=== PATIENT | male | born 1950 | race Caucasian/White ===

== ENCOUNTER 2023-04-01 11:01 | Emergency (ER) | payer OTHER, SELFPAY ==
--- NOTE | ~2023-04-01 | CT_ITS ---
EXAMINATION: CT ABDOMEN AND PELVIS WITHOUT CONTRAST CLINICAL INFORMATION: Left-sided flank pain COMPARISON: None available. TECHNIQUE: Multidetector volumetric imaging was performed from the superior aspect of the liver through the pubic symphysis. Sagittal and coronal reformatted images were obtained on the technologist's workstation. This CT examination was performed using dose optimization techniques as appropriate, variously including the following: *Automated exposure control *Adjustment of mA and/or kV according to patient size (this includes techniques or standardized protocols for targeted exams where dose is matched to indication/reason for exam; i.e. extremities or head) *Use of iterative reconstruction technique DLP: 479 mGy-cm FINDINGS: LUNG BASES: Some subpleural reticular changes are seen which may be indicative of minimal fibrosis. No consolidations, suspicious lung masses or pleural effusions. LIVER, GALLBLADDER, AND BILIARY TREE: The liver is normal in size, shape, and attenuation. Multiple benign simple cysts are noted throughout the liver. No suspicious solid focal hepatic lesion or biliary ductal dilatation is present. The gallbladder is unremarkable with no evidence of radiopaque gallstones, gallbladder wall thickening, or obvious pericholecystic inflammatory changes. PANCREAS: Unremarkable. SPLEEN: Unremarkable. ADRENAL GLANDS: Unremarkable. KIDNEYS AND URETERS: The kidneys are normal in size, shape, and attenuation. There is a nonobstructing 2 mm right lower pole renal calculus along with a benign Bosniak class one lower pole right renal cyst. The right ureter is unremarkable. Of note, there is left-sided hydronephrosis secondary to an obstructing proximal 6 x 4 mm ureteral calculus. This measures 982 Hounsfield units and is almost 15 cm from the posterior axillary line. There is mild dilatation of the ureter above this level with mild pelvocaliectasis. Perirenal stranding is present. No suspicious left renal masses are seen.. BLADDER: Unremarkable. GASTROINTESTINAL TRACT: The small and large bowel are unremarkable. The appendix is unremarkable. ABDOMINAL WALL: Small left inguinal hernia seen containing only fat. LYMPH NODES: No retroperitoneal lymphadenopathy. VASCULAR:Minimal calcific atherosclerotic changes are present in the aorta and iliofemoral vessels. There is no evidence of an abdominal aortic aneurysm. PELVIC VISCERA: Mild BPH. Seminal vesicles normal OSSEOUS STRUCTURES: Degenerative changes are present spine most marked at L5-S1 with a Schmorl's node at the inferior endplate of L2. CT/CT abdomen pelvis wo IV con IMPRESSION: 1. Obstructing 6 x 4 mm proximal left ureteral calculus with associated hydronephrosis. 2. Nonobstructing 2 mm right lower pole renal calculus. 3. Other incidental findings as described above. Fleischner guidelines were followed.
[2023-04-01 11:12] VITALS: BP 147/84; PULSE 56; RESP 18; TEMP 36.3; O2SAT 98; BMI 23.9
[2023-04-01] MEDS: Ondansetron ODT 4 MG TAB.RAPDIS TRANSLINGU (11:16)
--- NOTE | 2023-04-01 11:16 | PC.NURSE ---
a&ox3, vss and up to date at this time. pt comes in d/t new onset 1010 left sided abdominal pain that started this am. pain radiates to left flank. denies urinary sx. pt states n/v. denies diarrhea. denies any trauma. no sob/wob noted at this time. respirations even and unlabored. resting comfortably/changed to hospital attire. bedside. call talavera placed within reach.
[2023-04-01 11:28] LABS: MANUAL DIFF FLAG NO
[2023-04-01 11:30] VITALS: BP 171/87; PULSE 70; RESP 16; O2SAT 99
[2023-04-01 11:31] LABS: Basophils Percent Auto 0.4 % (0-2); Eosinophils Absolute Auto 0.1 X10*3/uL (0.0-0.4); Eosinophils Percent Auto 1.3 % (0-4); Hematocrit 44.5 % (42.0-52.0); Hemoglobin 14.4 g/dl (14.0-18.0); Imm Gran Abs Auto 0.04 X10*3/uL (0.00-0.03); Imm Gran Pct Auto 0.4 % (0.0-0.4); Lymphocytes Absolute Auto 1.6 X10*3/uL (1.2-4.9); Lymphocytes Percent Auto 15.7 % (20-40); Mean Corpuscular HGB Conc 32.4 g/dl (31.0-36.0); Mean Corpuscular Hemoglobin 32.4 pg (27.0-33.0); Mean Platelet Volume 11.4 fL (9.4-12.4); Monocytes Absolute Auto 0.5 X10*3/uL (0.1-1.2); Monocytes Percent Auto 4.9 % (2-11); Neutrophils Absolute Auto 7.7 x10*3/uL (2.0-8.3); Neutrophils Percent Auto 77.3 % (45-73); Platelet Count 226 X10*3/uL (160-400); Red Blood Count 4.45 X10*6/uL (4.60-5.80); Red Cell Distribution Width 13.8 % (11.0-16.0); White Blood Count 9.9 X10*3/uL (4.8-10.8)
[2023-04-01 11:42] LABS: Alanine Aminotransferase 20 U/L (0-40); Albumin Level 4.4 g/dL (3.5-5.0); Alkaline Phosphatase 93 U/L (39-117); Anion Gap 11 (12-20); Aspartate Amino Transferase 20 U/L (5-37); Bilirubin Total 0.7 mg/dL (0.0-1.0); Blood Urea Nitrogen 24 mg/dL (9-16); Calcium 9.8 mg/dL (8.4-10.2); Carbon Dioxide 30 mmol/L (22-29); Chloride 105 mmol/L (96-108); Creatinine Clr Calc Pharmacy 51.3; Estimated Glomerular Filt Rate 53; Glucose Random 144 mg/dL (60-115); Potassium 4.8 mmol/L (3.3-5.1); Sodium 141 mmol/L (135-145); Total Protein 7.8 g/dL (6.5-8.0)
--- NOTE | 2023-04-01 11:51 | ED_ITS ---
HPI - General Adult General Chief complaint: Abdominal Pain Stated complaint: severe l side pain Time Seen by Provider: 04/01/23 11:51 Source: patient Mode of arrival: ambulatory Limitations: no limitations History of Present Illness HPI narrative: Patient is a 73-year-old male presenting to the emergency department with complaint left flank/left-sided abdominal pain which began suddenly earlier today. Patient states that he felt fine when he woke. Reports associated nausea and vomiting, denies diarrhea or constipation. States emesis is non- bloody, non-bilious. Denies fever. Denies urinary frequency, dysuria, hematuria or other urinary symptoms. Patient's states that patient's sister was recently diagnosed with a kidney stone. MD complaint: flank pain Onset (ago): hour(s) Location: left Radiation: abdomen Severity: severe Severity scale (1-10): 10 Quality: sharp Pain Consistency: constant Relieving factors: none Exacerbating factors: none Associated symptoms: nausea/vomiting Treatments prior to arrival: none Related Data Previous Rx's Medication Instructions Recorded ondansetron HCl 4 mg tablet 4 mg PO Q8H PRN nausea and 04/01/23 vomiting #10 tabs oxycodone 5 mg tablet 5 mg PO Q8H PRN pain #9 tabs 04/01/23 prednisone 20 mg tablet 20 mg PO DAILY #4 tabs 04/01/23 tamsulosin 0.4 mg capsule 0.4 mg PO DAILY #7 caps 04/01/23 Allergies Allergy/AdvReac Type Severity Reaction Status Date / Time No Known Allergies Allergy Verified 04/01/23 11:11 Review of Systems 2 Review of Systems: As per HPI. Yes all other systems are reviewed and are negative Constitutional: Constitutional: Reports as per HPI [facility] Social History Social History Smoked in Last 30 Days: No Use of substances other than those prescribed or required for medical reasons: No Advance Directives: No Physical Exam ED Vital Signs: Vital Signs - 24 hr 04/01/23 11:12 04/01/23 11:30 04/01/23 14:00 Temperature 97.4 F Pulse Rate 56 70 83 Respiratory Rate 18 16 16 Blood Pressure 147/84 H 171/87 H 132/69 Pulse Oximetry 98 99 96 Oxygen Delivery Method Room Air Room Air Room Air BMI result Body Mass Index 23.9 Vital signs have been reviewed and appear to be correct. Blood pressure elevated. Heart rate normal. Respiratory rate normal. Temperature normal. Oxygen saturation normal. Const General: cooperative, healthy appearing and no acute distress Orientation/consciousness: oriented to person, oriented to place, oriented to time and patient oriented x3 Limitations: no limitations HENMT Head: Yes normocephalic and Yes atraumatic Ears: external ears normal General nose exam: Normal external nose present Face and sinus: Yes face symmetric Mouth: oropharynx normal and moist mucous membranes Throat: Yes uvula midline Eyes Pupils: Equal, round and reactive pupils present Neck Neck: Yes normal visual inspection and Yes supple Resp Effort & Inspection: normal respiratory effort and able to speak in complete sentences Auscultation: clear to auscultation bilaterally Cardio Rate: regular rate Rhythm: regular rhythm Heart sounds: S1 normal heart sound present and S2 normal heart sound present GI Palpation (GI): Soft to palpation and nontender Auscultation: normoactive bowel sounds General: Yes no CVA tenderness Back/Spine/Pelvis Back: no CVA tenderness Skin General skin exam: elasticity normal and turgor normal Neuro General: oriented to person, oriented to place, oriented to time, patient oriented x3, moves all extremities, no focal motor deficits and CN's II-XI intact bilaterally Cranial nerves: Yes Equal, round and reactive pupils present Cognition (Neuro): normal cognition Extrem General: Yes full ROM, Yes no pedal edema and Yes no calf tenderness Psych Mental Status: mental status grossly normal Affect: normal affect Thought process: Normal thought process present Medications Administered Discontinued Medications Generic Name Dose Route Start Last Admin Trade Name Freq PRN Reason Stop Dose Admin Sodium Chloride 1,000 mls @ 999 mls/hr 04/01/23 12:00 04/01/23 13:13 Ns IV 04/01/23 13:00 Infused .Q1H1M MOE Infusion Ketorolac Tromethamine 15 mg 04/01/23 11:52 04/01/23 12:03 Ketorolac Tromethamine 15 Mg/Ml Vial IVPUSH 04/01/23 11:53 15 mg ONCE ONE Administration Metoclopramide HCl 10 mg 04/01/23 11:51 04/01/23 12:03 Metoclopramide Hcl 10 Mg/2 Ml Vial IVPUSH 04/01/23 11:52 10 mg ONCE ONE Administration Morphine Sulfate 4 mg 04/01/23 12:13 04/01/23 12:18 Morphine Sulfate 4 Mg/Ml Cartridge IVPUSH 04/01/23 12:14 4 mg ONCE ONE Administration Protocol Ondansetron HCl 4 mg 04/01/23 11:15 04/01/23 11:16 Ondansetron Odt 4 Mg Tab.Rapdis TRANSLINGU 04/01/23 11:16 4 mg ONCE ONE Administration Medical Decision Making Medical Decision Making [facility] Narrative: Patient is a 73-year-old male presenting to the emergency department with complaint left flank/left-sided abdominal pain which began suddenly earlier today. On exam patient is awake, A+Ox3, VS WNL, afebrile, normal neurological exam without focal deficits, physical exam findings as above. Given reported symptoms and physical exam findings, initial differential includes renal colic, renal/ureteral stone, UTI, pyelonephritis. Labs notable for no leukocytosis, mild elevation of BUN. UA notable for 3+ blood. CT notable for 4mm x 6mm left ureteral stone. My interpretation is in agreement with the radiologist's interpretation. Patient initially reporting pain of 10/10, pain improved to 1/10 after morphine and ketorolac. Differential Diagnosis Differential Diagnoses: The differential diagnosis associated with the presentation includes As per [facility]. Admission/Observation Consideration of admission/observation: Escalation of care including admission/observation considered Consult Healthcare Provider Management of the patient was discussed with: Ad Writer (Dr. Elias) Lab Data [facility] Lab Attestation statement: I reviewed the patient's lab results. As per [facility] 04/01/23 11:22 04/01/23 11:22 Labs: Lab Results 04/01/23 04/01/23 Range/Units 11: 14:20 WBC 9.9 (4.8-10.8) X10*3/uL RBC 4.45 L (4.60-5.80) X10*6/uL Hgb 14.4 (14.0-18.0) g/dl Hct 44.5 (42.0-52.0) % MCV 100.0 H (80.0-98.0) fL MCH 32.4 (27.0-33.0) pg MCHC 32.4 (31.0-36.0) g/dl RDW 13.8 (11.0-16.0) % Plt Count 226 (160-400) X10*3/uL MPV 11.4 (9.4-12.4) fL Immature Gran % (Auto) 0.4 (0.0-0.4) % Neut % (Auto) 77.3 H (45-73) % Lymph % (Auto) 15.7 L (20-40) % Harris % (Auto) 4.9 (2-11) % Eos % (Auto) 1.3 (0-4) % Baso % (Auto) 0.4 (0-2) % Lymph # (Auto) 1.6 (1.2-4.9) X10*3/uL Harris # (Auto) 0.5 (0.1-1.2) X10*3/uL Eos # (Auto) 0.1 (0.0-0.4) X10*3/uL Baso # (Auto) 0.0 (0.0-0.2) X10*3/uL Abs Immat Gran (auto) 0.04 H (0.00-0.03) X10*3/uL Absolute Neuts (auto) 7.7 (2.0-8.3) x10*3/uL Absolute Nucleated RBC 0.000 (0.0-0.012) X10*3/uL Nucleated RBC % (auto) 0.0 (0.0-0.2) /100WBC Sodium 141 (135-145) mmol/L Potassium 4.8 (3.3-5.1) mmol/L Chloride 105 (96-108) mmol/L Carbon Dioxide 30 H (22-29) mmol/L Anion Gap 11 L (12-20) BUN 24 H (9-16) mg/dL Creatinine 1.32 (0.5-1.4) mg/dL Estim Creat Clear Calc 51.3 Estimated GFR 53 Random Glucose 144 H (60-115) mg/dL Calcium 9.8 (8.4-10.2) mg/dL Total Bilirubin 0.7 (0.0-1.0) mg/dL AST 20 (5-37) U/L ALT 20 (0-40) U/L Alkaline Phosphatase 93 (39-117) U/L Total Protein 7.8 (6.5-8.0) g/dL Albumin 4.4 (3.5-5.0) g/dL Urine Color Dark Yellow Urine Appearance Clear Urine pH 6.0 (5.0-9.0) Ur Specific [place] 1.025 (1.005-1.025) Urine Protein 30 (1+) H (Neg-Trace) mg/dL Urine Glucose (UA) Negative (Negative) mg/dL Urine Ketones Trace (Negative) mg/dL Urine Blood Large (3+) H (Negative) Urine Nitrite Negative (Negative) Ur Leukocyte Esterase Negative (Negative) Urine RBC >20 H (0-2) /HPF Urine WBC 0-5 (0-5) /HPF Ur Squamous Epith Cells 0-2 (0-2) /HPF Urine Bacteria None Seen (None Seen) Hyaline Casts 0-2 (0-2) /LPF Independent Interpretation I performed an independent interpretation of an: CT Scan Interpretation: left ureteral stone Radiology Impression Discussion of test interpretation with radiology: I have reviewed the radiologist's reading. Radiologist Impression: CT/CT abdomen pelvis wo IV con IMPRESSION: 1. Obstructing 6 x 4 mm proximal left ureteral calculus with associated hydronephrosis. 2. Nonobstructing 2 mm right lower pole renal calculus. 3. Other incidental findings as described above. Fleischner guidelines were followed. External Record Review External record reviewed: Inpatient record, Office record and Outpatient record Prescription Management I considered prescription management with: Pain Medication and Other Critical Care Time Critical Care Time Critical Care Time: Yes Total Critical Care Time: 45 Attestation: I have personally provided critical care time exclusive of time spent on separately billable procedures. Time includes review of lab data, radiology results, discussion with consultants, and monitoring for potential decompensation. Intervention performed as documented. Discharge Plan Discharge Clinical Impression: Calculus of left ureter Patient Disposition: Home, Self-Care Instructions: Low Oxalate Diet (ED), How to Strain Your Urine (ED), Ureteral Stones (ED) Additional Instructions: You were evaluated in the emergency department today for left flank pain. Your CT scan showed a 4 mm x 6 mm stone in your left ureter. Your urine did not show evidence of infection. You are being discharged home on prednisone which is a steroid to decrease inflammation, tamsulosin to dilate your ureter and help the stone pass, oxycodone for severe pain, and ondansetron for nausea. You can take 600 mg ibuprofen or 650 mg of Tylenol every 6 hours for pain as well. You are being referred to Urology, please call the office to schedule a follow-up appointment for further evaluation and management of your symptoms. Return to the emergency department if you develop worsening pain, difficulty or inability to urinate, fever 100.4? F or greater, persistent vomiting or any other concerning symptoms. Prescriptions: New prednisone 20 mg tablet 20 mg PO DAILY Qty: 4 0RF tamsulosin 0.4 mg capsule 0.4 mg PO DAILY Qty: 7 0RF ondansetron HCl 4 mg tablet 4 mg PO Q8H PRN (Reason: nausea and vomiting) Qty: 10 0RF oxycodone 5 mg tablet 5 mg PO Q8H PRN (Reason: pain) Qty: 9 0RF Rx Instructions: Partial Fill upon patient request. Referrals: [facility] [Provider Group]
--- NOTE | 2023-04-01 11:52 | PC.NURSE ---
pt actively vomiting at this time. provider aware/notified/now speaking w/ pt at this time.
[2023-04-01] MEDS: 0.9 % Sodium Chloride 1,000 ML 999 ML IV (12:02)
[2023-04-01] MEDS: Metoclopramide HCl 10 MG/2 ML VIAL IVPUSH (12:03)
[2023-04-01] MEDS: Ketorolac Tromethamine 15 MG/ML VIAL IVPUSH (12:03)
--- NOTE | 2023-04-01 12:12 | PC.NURSE ---
20gIV placed in the wrist wrist w/o difficulty - medications administered per provider order. pt speaking w/ provider at this time. awaiting to go to CT at this time. respirations even and unlabored. call talavera placed within reach.
[2023-04-01] MEDS: Morphine Sulfate 4 MG/ML CARTRIDGE IVPUSH (12:18)
--- NOTE | 2023-04-01 12:22 | PC.NURSE ---
medication administered per provider order. will reassess.
--- NOTE | 2023-04-01 12:52 | PC.NURSE ---
pt verbalizing pain level decreased to 0/10 at this time post medication administration - states that he is feeling much better. n/v has subsided at this time. respirations remain even and unlabored. pt awaiting CT at this time. call talavera placed within reach.
[2023-04-01 14:00] VITALS: BP 132/69; PULSE 83; RESP 16; O2SAT 96
--- NOTE | 2023-04-01 14:16 | PC.NURSE ---
urine obtained/sent to lab by tech.
[2023-04-01 14:30] LABS: Appearance Urine Clear; Color Urine Dark Yellow; Glucose Urine UA Negative (Negative); Leukocyte Esterase Urine Negative (Negative); Nitrite Urine Negative (Negative); Specific Gravity - Urine 1.025 (1.005-1.025); UMIC TRIGGER UACC YES; Urine Blood Large (3+) (Negative); Urine Ketones Trace mg/dL (Negative); Urine Protein 30 (1+) mg/dL (Neg-Trace)
[2023-04-01 14:35] LABS: Bacteria Urine None Seen (None Seen); Hyaline Casts Urine 0-2 /LPF (0-2); RBC Urine >20 /HPF (0-2); Squamous Epithelial Cell Urine 0-2 /HPF (0-2); WBC Urine 0-5 /HPF (0-5)
[2023-04-01] MEDS: predniSONE 20 MG TABLET PO (17:36)
[2023-04-01] MEDS: Tamsulosin HCL 0.4 MG CAPSULE PO (17:36)
[2023-04-01 17:44] VITALS: BP 142/77; PULSE 74; RESP 16; TEMP 36.7; O2SAT 98
--- NOTE | 2023-04-01 17:45 | PC.NURSE ---
pt medicated per order
== END 2023-04-01 17:45 | disposition home or self-care (01) ==
PROVIDERS: Emergency Provider Emergency Medicine Emergency Medical Services; PCP Internal Medicine
DX: N20.1 Calculus of ureter (principal); R10.9 Unspecified abdominal pain; R11.2 Nausea with vomiting, unspecified; Z79.899 Other long term (current) drug therapy
CPT/HCPCS: 36415; 74176; 80053; 81001; 85025; 96361; 96374; 96375; 99284; 99285; J1885; J2270; J2765

== ENCOUNTER 2023-04-04 14:06 | Inpatient (IN) | payer OTHER, MEDICARE, SELFPAY ==
--- NOTE | ~2023-04-04 | CT_ITS ---
EXAMINATION: CT ABDOMEN AND PELVIS WITHOUT CONTRAST CLINICAL INFORMATION: Worsening hydronephrosis. Known ureter stone. COMPARISON: CT abdomen pelvis 09/29/2022. TECHNIQUE: Multidetector volumetric imaging was performed from the superior aspect of the liver through the pubic symphysis. Sagittal and coronal reformatted images were obtained on the technologist's workstation. This CT examination was performed using dose optimization techniques as appropriate, variously including the following: *Automated exposure control *Adjustment of mA and/or kV according to patient size (this includes techniques or standardized protocols for targeted exams where dose is matched to indication/reason for exam; i.e. extremities or head) *Use of iterative reconstruction technique DLP: 501 mGy-cm FINDINGS: LUNG BASES: Minimal atelectatic changes or scarring lingula. Small os hiatal hernia is noted. LIVER, GALLBLADDER, AND BILIARY TREE: The liver is normal in size, shape, and attenuation. There are multiple benign liver cysts. No solid lesion. No intrahepatic ductal dilatation.. The gallbladder is unremarkable with no evidence of radiopaque gallstones, gallbladder wall thickening, or obvious pericholecystic inflammatory changes. PANCREAS: Unremarkable. SPLEEN: Unremarkable. ADRENAL GLANDS: Unremarkable. KIDNEYS AND URETERS: The kidneys are normal in size, shape, and attenuation. There is a nonobstructive 4 mm radiopaque calculi lower pole right kidney. No hydronephrosis. There is a 7 mm a subcutaneous radiopaque calculi left proximal ureter with hydroureteronephrosis. There is mild bilateral perinephric stranding.. BLADDER: Unremarkable. GASTROINTESTINAL TRACT: There is scattered stool, diverticuli and gas seen throughout the colon without significant distention or diverticulitis. The small bowel loops are normal caliber. Appendix is normal caliber. The stomach is nondistended with a small hiatal hernia. ABDOMINAL WALL: There is a left inguinal hernia with large amount of mesenteric fat and a loop of sigmoid colon at the deep inguinal ring opening. LYMPH NODES: Normal. VASCULAR: Unremarkable. PELVIC VISCERA: The prostate gland is markedly enlarged. There are several phleboliths in the pelvis. OSSEOUS STRUCTURES: There are degenerative disc changes L5-S1 disc level. No aggressive lytic or sclerotic process seen. CT/CT abdomen pelvis wo IV con IMPRESSION: 1. 7 mm obstructive radiopaque calculi left proximal ureter with hydroureteronephrosis. 2. Nonobstructive 4 mm radiopaque calculi lower pole right kidney. 3. Colonic diverticulosis without diverticulitis. Mild constipation. 4. Left inguinal hernia with mesenteric fat and a loop of sigmoid colon at the deep inguinal ring opening. Fleischner guidelines were followed.
--- NOTE | ~2023-04-04 | FL_ITS ---
EXAMINATION: XR FLUOROSCOPY WITH IMAGES CLINICAL INFORMATION: Left-sided ureteral stent placement. COMPARISON: CT abdomen and pelvis 04/04/2020. TECHNIQUE: Fluoroscopy Supervised By: Dr. Petros Valladares. Fluoroscopy Time: 19.5 seconds. Cumulative Dose: 6.05 mGy. Images: 2. FINDINGS: Imaging demonstrates filling defect in the proximal ureter followed by placement of a ureteral stent. Only the proximal pigtail is seen in the left renal pelvis. FL/FL guidance in OR IMPRESSION: Fluoroscopy provided for left ureteral stent placement.
[2023-04-04 14:37] VITALS: BP 150/78; PULSE 72; RESP 19; TEMP 36.6; O2SAT 97; BMI 24.4
--- NOTE | 2023-04-04 14:41 | ED_ITS ---
HPI - General Adult General Chief complaint: Urogenital-Male Stated complaint: Kidney stone seen here recently Time Seen by Provider: 04/04/23 16:29 Source: patient Mode of arrival: ambulatory Limitations: no limitations History of Present Illness HPI narrative: Patient with no significant past medical history was seen here on 04/01 4 left flank pain diagnosed with 7 mm proximal ureteric stone with hydronephrosis patient been taking pain medication Flomax and still having increased pain with nausea and vomiting repeat CT scan done before my evaluation showed still has 7 mm proximal left ureteric stone with hydronephrosis. Related Data Home Medications Medication Instructions Recorded Confirmed dorzolamide 22.3 mg-timolol 6.8 1 drp ophthalmic-Right DAILY 04/04/23 04/04/23 mg/mL eye drops loteprednol etabonate 0.5 % eye 1 drp ophthalmic-Left MOWEFR@0900 04/04/23 04/04/23 drops,suspension prednisone 20 mg tablet See Rx Instructions .Route .COMPLEX 04/04/23 04/04/23 tamsulosin 0.4 mg capsule See Rx Instructions .Route .COMPLEX 04/04/23 04/04/23 Previous Rx's Medication Instructions Recorded ondansetron HCl 4 mg tablet 4 mg PO Q8H PRN nausea and 04/01/23 vomiting #10 tabs oxycodone 5 mg tablet 5 mg PO Q8H PRN pain #9 tabs 04/01/23 Allergies Allergy/AdvReac Type Severity Reaction Status Date / Time No Known Allergies Allergy Verified 04/04/23 14:36 Review of Systems 2 Review of Systems: Yes all other systems are reviewed and are negative [facility] Past Medical History Medical History (Updated 04/05/23 @ 12:02 by Petros Valladares MD) Glaucoma Surgical History (Updated 04/05/23 @ 11:29 by Alessandra Casillas RN) Hx of rotator cuff surgery History of back surgery Hx of bilateral cataract extraction Social History Social History Household Members: Spouse Housing: House Do you presently have visiting nurse or other home services: No Alcohol intake: former Patient Tobacco Use Status: Former Tobacco user Quit Date: 20 yrs ago Smoked in Last 30 Days: No Use of substances other than those prescribed or required for medical reasons: No Have you been hit, kicked, punched, or otherwise hurt by someone within the past year? If so, by whom?: No Do you feel safe in your current relationship?: Yes Is there a partner from a previous relationship who is making you feel unsafe now?: No Are you made to feel afraid or neglected: No Are you DNR?: No Advance Directives: No Advance Directives Information Provided: No Do you have thoughts of harming others: None Do you have a plan to hurt others: No Plan Recently lost weight without trying: No Eating poorly because of decreased appetite: No Nutrition Risks: No Nutritional Risk Poor oral hygiene: No service: No Physical Exam ED Vital Signs: Vital Signs - 24 hr 04/04/23 14:37 04/04/23 15:54 04/04/23 16:00 Temperature 98 F 98.3 F Pulse Rate 72 78 Respiratory Rate 19 20 18 Blood Pressure 150/78 H 164/85 H Pulse Oximetry 97 96 Oxygen Delivery Method Room Air Room Air BMI result Body Mass Index 24.4 Appearance: Alert. Oriented X3. In moderate distress Eyes: no pallor ENT: Pharynx normal. Oral Mucosa moist Neck: Normal inspection. Neck supple. CVS: Normal heart rate and rhythm. Pulses normal. Respiratory: No respiratory distress. Equal air entry bilateral, no wheezing/rales/rhonchi Abdomen: Soft and nontender. Bowel sounds are present, no mass palpable, L CVA tenderness Skin: Skin warm and dry. Normal skin color. Normal skin turgor. Extremities: No lower extremity edema. No calf tenderness Neuro: Oriented X 3. Course Course Course Narrative: RME: 73 yold male recently seen in this ED for left 6mm ureter and returns to the ED for continuous uncontrolled pain and vomitting. Repeat labs ordered. Nurse rucker went to speak to nurse Byrd to discuss brining patient into a room. Medications Administered Generic Name Dose Route Start Last Admin Trade Name Freq PRN Reason Stop Dose Admin Lactated Ringer's 1,000 mls @ 125 mls/hr 04/04/23 18:00 04/05/23 10:20 Lr IVCONT 125 mls/hr .Q8H MOE Administration Morphine Sulfate 4 mg 04/04/23 17:54 04/05/23 07:34 Morphine Sulfate 4 Mg/Ml Cartridge IVPUSH 4 mg RQ4H PRN Administration Pain, Severe (Pain Scale 7-10) Protocol Sodium Chloride 3 ml 04/05/23 00:00 04/05/23 07:16 0.9 % Sodium Chloride Flush 3 Ml Syringe IVFLUSH Not Given QSHIFT MOE Discontinued Medications Generic Name Dose Route Start Last Admin Trade Name Suma PRN Reason Stop Dose Admin Dexamethasone Sodium Phosphate 10 mg 04/04/23 16:32 04/04/23 16:41 Dexamethasone Sod Phosphate 10 Mg/Ml Vial IVPUSH 04/04/23 16:33 10 mg ONCE ONE Administration Sodium Chloride 1,000 mls @ 999 mls/hr 04/04/23 16:32 04/04/23 18:13 Ns IV 04/04/23 17:32 Infused .Q1H1M ONE Infusion Levofloxacin 500 mg in 100 mls @ 100 mls/hr 04/05/23 10:06 04/05/23 13:51 Levaquin IV 04/05/23 11:05 Not Given PREOP ONE Ketorolac Tromethamine 30 mg 04/04/23 16:32 04/04/23 16:41 Ketorolac Tromethamine 30 Mg/Ml Vial IVPUSH 04/04/23 16:33 30 mg ONCE ONE Administration Morphine Sulfate 4 mg 04/04/23 16:32 04/04/23 16:41 Morphine Sulfate 4 Mg/Ml Cartridge IVPUSH 04/04/23 16:33 4 mg ONCE ONE Administration Protocol Ondansetron HCl 4 mg 04/04/23 14:55 04/04/23 14:57 Ondansetron Odt 4 Mg Tab.Rapdis TRANSLINGU 04/04/23 14:56 4 mg ONCE ONE Administration Phenazopyridine HCl 100 mg 04/05/23 12:37 04/05/23 12:55 Phenazopyridine Hcl 100 Mg Tablet PO 04/05/23 12:38 100 mg ONCE ONE Administration Phenylephrine HCl 0.1 mg 04/05/23 12:01 04/05/23 13:51 Phenylephrine Hcl 10 Mg/Ml Vial IVPUSH 04/05/23 12:02 Not Given ONCE ONE Tamsulosin HCl 0.4 mg 04/04/23 17:54 04/04/23 18:19 Tamsulosin Hcl 0.4 Mg Capsule PO 04/04/23 17:55 0.4 mg ONCE ONE Administration Medical Decision Making Medical Decision Making MDM Narrative: Patient with obstructive left proximal ureteric stone 7 mm in size been in pain for last few days repeat CT scan shows stone still in the proximal ureter. Case discussed with Dr. Acevedo urologist will admit patient to her service plan for lithotripsy in the a.m. Differential Diagnosis Differential Diagnoses: The differential diagnosis associated with the presentation includes Renal colic/UTI Admission/Observation Consideration of admission/observation: Escalation of care including admission/observation considered Lab Data MDM Lab Attestation statement: I reviewed the patient's lab results. 04/04/23 16:08 04/04/23 16:08 Labs: Lab Results 04/04/23 Range/Units 16:08 WBC 11.6 H (4.8-10.8) X10*3/uL RBC 4.33 L (4.60-5.80) X10*6/uL Hgb 14.3 (14.0-18.0) g/dl Hct 43.5 (42.0-52.0) % MCV 100.5 H (80.0-98.0) fL MCH 33.0 (27.0-33.0) pg MCHC 32.9 (31.0-36.0) g/dl RDW 13.7 (11.0-16.0) % Plt Count 217 (160-400) X10*3/uL MPV 11.8 (9.4-12.4) fL Immature Gran % (Auto) 0.7 H (0.0-0.4) % Neut % (Auto) 90.2 H (45-73) % Lymph % (Auto) 5.3 L (20-40) % Anderson % (Auto) 3.4 (2-11) % Eos % (Auto) 0.2 (0-4) % Baso % (Auto) 0.2 (0-2) % Lymph # (Auto) 0.6 L (1.2-4.9) X10*3/uL Anderson # (Auto) 0.4 (0.1-1.2) X10*3/uL Eos # (Auto) 0.0 (0.0-0.4) X10*3/uL Baso # (Auto) 0.0 (0.0-0.2) X10*3/uL Abs Immat Gran (auto) 0.08 H (0.00-0.03) X10*3/uL Absolute Neuts (auto) 10.5 H (2.0-8.3) x10*3/uL Absolute Nucleated RBC 0.000 (0.0-0.012) X10*3/uL Nucleated RBC % (auto) 0.0 (0.0-0.2) /100WBC Smear Tech's Comments VERIFIED Sodium 141 (135-145) mmol/L Potassium 4.1 (3.3-5.1) mmol/L Chloride 104 (96-108) mmol/L Carbon Dioxide 26 (22-29) mmol/L Anion Gap 15 (12-20) BUN 20 H (9-16) mg/dL Creatinine 1.52 H (0.5-1.4) mg/dL Estim Creat Clear Calc 44.5 Estimated GFR 45 Random Glucose 140 H (60-115) mg/dL Calcium 9.6 (8.4-10.2) mg/dL Total Bilirubin 0.8 (0.0-1.0) mg/dL AST 21 (5-37) U/L ALT 18 (0-40) U/L Alkaline Phosphatase 86 (39-117) U/L Total Protein 7.9 (6.5-8.0) g/dL Albumin 4.4 (3.5-5.0) g/dL Urine Color Yellow Urine Appearance Clear Urine pH 6.5 (5.0-9.0) Ur Specific Murdock 1.020 (1.005-1.025) Urine Protein Negative (Neg-Trace) mg/dL Urine Glucose (UA) Negative (Negative) mg/dL Urine Ketones 40 (Negative) mg/dL Urine Blood Moderate (2+) H (Negative) Urine Nitrite Negative (Negative) Ur Leukocyte Esterase Negative (Negative) Urine RBC >20 H (0-2) /HPF Urine WBC 0-5 (0-5) /HPF Ur Squamous Epith Cells 0-2 (0-2) /HPF Urine Bacteria None Seen (None Seen) Hyaline Casts 0-2 (0-2) /LPF Independent Interpretation I performed an independent interpretation of an: CT Scan Radiology Impression Discussion of test interpretation with radiology: I have reviewed the radiologist's reading. Radiologist Impression: [address] [address] [address] Scan Report Signed Patient: Alok Alfred MR#: [id number] : 1950 Acct:[id number] Age/Sex: 73 / M ADM Date: 04/04/23 Loc: HO.ED Attending Dr: Ordering Physician: Christian Pinon Date of Service: 04/04/23 Procedure(s): CT abdomen pelvis wo IV con Accession Number(s): [id number] cc: Christian Pinon; AARON REBOLLEDO MD~ EXAMINATION: CT ABDOMEN AND PELVIS WITHOUT CONTRAST CLINICAL INFORMATION: Worsening hydronephrosis. Known ureter stone. COMPARISON: CT abdomen pelvis 09/29/2022. TECHNIQUE: Multidetector volumetric imaging was performed from the superior aspect of the liver through the pubic symphysis. Sagittal and coronal reformatted images were obtained on the technologist's workstation. This CT examination was performed using dose optimization techniques as appropriate, variously including the following: *Automated exposure control *Adjustment of mA and/or kV according to patient size (this includes techniques or standardized protocols for targeted exams where dose is matched to indication/reason for exam; i.e. extremities or head) *Use of iterative reconstruction technique DLP: 501 mGy-cm FINDINGS: LUNG BASES: Minimal atelectatic changes or scarring lingula. Small os hiatal hernia is noted. LIVER, GALLBLADDER, AND BILIARY TREE: The liver is normal in size, shape, and attenuation. There are multiple benign liver cysts. No solid lesion. No intrahepatic ductal dilatation.. The gallbladder is unremarkable with no evidence of radiopaque gallstones, gallbladder wall thickening, or obvious pericholecystic inflammatory changes. PANCREAS: Unremarkable. SPLEEN: Unremarkable. ADRENAL GLANDS: Unremarkable. KIDNEYS AND URETERS: The kidneys are normal in size, shape, and attenuation. There is a nonobstructive 4 mm radiopaque calculi lower pole right kidney. No hydronephrosis. There is a 7 mm a subcutaneous radiopaque calculi left proximal ureter with hydroureteronephrosis. There is mild bilateral perinephric stranding.. BLADDER: Unremarkable. GASTROINTESTINAL TRACT: There is scattered stool, diverticuli and gas seen throughout the colon without significant distention or diverticulitis. The small bowel loops are normal caliber. Appendix is normal caliber. The stomach is nondistended with a small hiatal hernia. ABDOMINAL WALL: There is a left inguinal hernia with large amount of mesenteric fat and a loop of sigmoid colon at the deep inguinal ring opening. LYMPH NODES: Normal. VASCULAR: Unremarkable. PELVIC VISCERA: The prostate gland is markedly enlarged. There are several phleboliths in the pelvis. OSSEOUS STRUCTURES: There are degenerative disc changes L5-S1 disc level. No aggressive lytic or sclerotic process seen. CT/CT abdomen pelvis wo IV con IMPRESSION: 1. 7 mm obstructive radiopaque calculi left proximal ureter with hydroureteronephrosis. 2. Nonobstructive 4 mm radiopaque calculi lower pole right kidney. 3. Colonic diverticulosis without diverticulitis. Mild constipation. 4. Left inguinal hernia with mesenteric fat and a loop of sigmoid colon at the deep inguinal ring opening. External Record Review External record reviewed: Inpatient record Discharge Plan Discharge Clinical Impression: Left ureteral calculus Patient Disposition: Admitted As Inpatient Interventions: Admission Worksheet (ED) Last Done: 04/05/23 06:30 Discharge Date/Time: 04/05/23 06:44
[2023-04-04] MEDS: Ondansetron ODT 4 MG TAB.RAPDIS TRANSLINGU (14:57)
[2023-04-04 15:54] VITALS: BP 164/85; RESP 20; TEMP 36.8; O2SAT 96
--- NOTE | 2023-04-04 15:56 | PC.NURSE ---
Patient reports was seen here thur for kidney stones and was told to return if pain did karsten improve, patient reports 10/10 left sided flank and abdominal pain that has gotten worse. Last BM was day, denies chest pain sob, or pain with, denies blood in urine
[2023-04-04 16:00] VITALS: PULSE 78; RESP 18
[2023-04-04 16:21] LABS: Basophils Percent Auto 0.2 % (0-2); Eosinophils Percent Auto 0.2 % (0-4); Hematocrit 43.5 % (42.0-52.0); Hemoglobin 14.3 g/dl (14.0-18.0); Imm Gran Abs Auto 0.08 X10*3/uL (0.00-0.03); Imm Gran Pct Auto 0.7 % (0.0-0.4); Lymphocytes Absolute Auto 0.6 X10*3/uL (1.2-4.9); Lymphocytes Percent Auto 5.3 % (20-40); MANUAL DIFF FLAG SCAN; Mean Corpuscular HGB Conc 32.9 g/dl (31.0-36.0); Mean Corpuscular Volume 100.5 fL (80.0-98.0); Mean Platelet Volume 11.8 fL (9.4-12.4); Monocytes Absolute Auto 0.4 X10*3/uL (0.1-1.2); Monocytes Percent Auto 3.4 % (2-11); Neutrophils Absolute Auto 10.5 x10*3/uL (2.0-8.3); Neutrophils Percent Auto 90.2 % (45-73); Platelet Count 217 X10*3/uL (160-400); Red Blood Count 4.33 X10*6/uL (4.60-5.80); Red Cell Distribution Width 13.7 % (11.0-16.0); SCAN SMEAR FLAG 1; White Blood Count 11.6 X10*3/uL (4.8-10.8)
[2023-04-04 16:27] LABS: Appearance Urine Clear; Color Urine Yellow; Glucose Urine UA Negative (Negative); Leukocyte Esterase Urine Negative (Negative); Nitrite Urine Negative (Negative); PH 6.5 (5.0-9.0); UMIC TRIGGER UACC YES; Urine Blood Moderate (2+) (Negative); Urine Ketones 40 mg/dL (Negative); Urine Protein Negative (Neg-Trace)
[2023-04-04 16:31] LABS: Alanine Aminotransferase 18 U/L (0-40); Albumin Level 4.4 g/dL (3.5-5.0); Alkaline Phosphatase 86 U/L (39-117); Anion Gap 15 (12-20); Aspartate Amino Transferase 21 U/L (5-37); Bilirubin Total 0.8 mg/dL (0.0-1.0); Blood Urea Nitrogen 20 mg/dL (9-16); Calcium 9.6 mg/dL (8.4-10.2); Carbon Dioxide 26 mmol/L (22-29); Chloride 104 mmol/L (96-108); Creatinine Clr Calc Pharmacy 44.5; Estimated Glomerular Filt Rate 45; Glucose Random 140 mg/dL (60-115); Potassium 4.1 mmol/L (3.3-5.1); Sodium 141 mmol/L (135-145); Total Protein 7.9 g/dL (6.5-8.0)
[2023-04-04 16:37] LABS: Bacteria Urine None Seen (None Seen); Hyaline Casts Urine 0-2 /LPF (0-2); RBC Urine >20 /HPF (0-2); Squamous Epithelial Cell Urine 0-2 /HPF (0-2); WBC Urine 0-5 /HPF (0-5)
[2023-04-04] MEDS: Morphine Sulfate 4 MG/ML CARTRIDGE IVPUSH ×2 (16:41→22:58)
[2023-04-04] MEDS: Ketorolac Tromethamine 30 MG/ML VIAL IVPUSH (16:41)
[2023-04-04] MEDS: dexAMETHasone sod phosphate 10 MG/ML VIAL IVPUSH (16:41)
[2023-04-04] MEDS: 0.9 % Sodium Chloride 1,000 ML 999 ML IV (16:45)
[2023-04-04 16:48] LABS: SLIDE REVIEW VERIFIED
[2023-04-04] MEDS: Tamsulosin HCL 0.4 MG CAPSULE PO (18:19)
[2023-04-04] MEDS: Lactated Ringers 1,000 ML 125 ML IVCONT (18:29)
--- NOTE | 2023-04-04 18:36 | PHA.MEDREC ---
Pharmacy Consult ? Medication Reconciliation Pharmacy has completed the medication reconciliation.
[2023-04-04 19:07] VITALS: BP 123/61; PULSE 78; RESP 18; TEMP 36.7; O2SAT 96
--- NOTE | 2023-04-04 19:13 | PC.NURSE ---
this rn assumed care of pt. pt sitting up in stretcher comfortably, denies pain at this time. pt informed of NPO status at midnight. no acute distress, vss.
[2023-04-04 22:17] VITALS: BP 120/68; PULSE 74; RESP 18; TEMP 36.5; O2SAT 93
--- NOTE | 2023-04-04 22:59 | PC.NURSE ---
pt reporting 3/10 pain in the lower abdomen, pt medicated per jul.
[2023-04-05] VITALS (9 sets, daily range): BP systolic 100–148; BP diastolic 52–78; PULSE 58–72; RESP 14–18; TEMP 36.6–37.4; O2SAT 92–96
--- NOTE | 2023-04-05 00:09 | PC.NURSE ---
pt sleeping, respirations even and unlabored.
[2023-04-05] MEDS: Lactated Ringers 1,000 ML 125 ML IVCONT ×3 (02:39→19:24)
--- NOTE | 2023-04-05 02:40 | PC.NURSE ---
pt resting in stretcher, no acute distress. pt medicated per jul.
--- NOTE | 2023-04-05 06:43 | PC.NURSE ---
glasses not included in pt belongings list upon transport to the floor, unable to edit due to previous tech documentation.
[2023-04-05] MEDS: Morphine Sulfate 4 MG/ML CARTRIDGE IVPUSH (07:34)
--- NOTE | 2023-04-05 08:19 | PM.HPGS ---
History of Present Illness History of Present Illness Date of Service: 04/05/23 Chief complaint: L renal colic Narrative: Alok Alfred is a 73 year old male with no previous h/o kidney stones, represented to ED with Left flank pain. CTAP - Left proximal ureteral stone with hydro. right renal non obstructing stone Review of Systems Review of Systems: Yes all other systems are reviewed and are negative Constitutional: Constitutional: Reports no additional constitutional complaints Eyes: Eyes: Reports no additional eye complaints ENT: Reports system reviewed and no additional complaints, except as documented Cardiovascular: Cardiovascular: Denies dyspnea Respiratory: Respiratory: Denies cough and Denies dyspnea Gastrointestinal: Gastrointestinal: Reports no additional gastrointestinal complaints Musculoskeletal: Musculoskeletal: Reports no additional musculoskeletal complaints Integumentary/Breasts: Skin/Breast: Denies rash and Denies unusual bruising Neurologic: Reports system reviewed and no additional complaints, except as documented Psychiatric: Psychiatric: Reports no additional psychiatric complaints Endocrine: Endocrine: Reports no additional endocrine complaints Hematologic/Lymphatic: Hematologic/Lymphatic: Reports no additional hematologic/lymphatic complaints Allergic/Immunologic: Allergic/Immunologic: Reports no additional allergic/immunologic complaints [facility] Social History Social History Household Members: Spouse Housing: House Do you presently have visiting nurse or other home services: No Alcohol intake: former Patient Tobacco Use Status: Never used Tobacco Smoked in Last 30 Days: No Use of substances other than those prescribed or required for medical reasons: No Have you been hit, kicked, punched, or otherwise hurt by someone within the past year? If so, by whom?: No Do you feel safe in your current relationship?: Yes Is there a partner from a previous relationship who is making you feel unsafe now?: No Are you made to feel afraid or neglected: No Advance Directives: No Advance Directives Information Provided: No Do you have thoughts of harming others: None Do you have a plan to hurt others: No Plan Recently lost weight without trying: No Eating poorly because of decreased appetite: No Nutrition Risks: No Nutritional Risk Poor oral hygiene: No Meds Allergies Allergy/AdvReac Type Severity Reaction Status Date / Time No Known Allergies Allergy Verified 04/04/23 14:36 Active Medications: Current Medications Lactated Ringer's (Lr) 1,000 mls @ 125 mls/hr IVCONT .Q8H MOE Last Admin: 04/05/23 02:39 Dose: 125 mls/hr Morphine Sulfate (Morphine Sulfate 4 Mg/Ml Cartridge) 4 mg IVPUSH RQ4H PRN; Protocol PRN Reason: Pain, Severe (Pain Scale 7-10) Last Admin: 04/05/23 07:34 Dose: 4 mg Ondansetron HCl (Ondansetron Hcl 4 Mg/2 Ml Vial) 4 mg IVPUSH RQ6H PRN PRN Reason: Nausea and Vomiting Sodium Chloride (0.9 % Sodium Chloride Flush 3 Ml Syringe) 3 ml IVFLUSH QSHIFT [facility] Last Admin: 04/05/23 07:16 Dose: Not Given Home Medications Medication Instructions Recorded Confirmed Last Taken Type dorzolamide 22.3 mg-timolol 6.8 1 drp ophthalmic-Right DAILY 04/04/23 04/04/23 04/03/23 History mg/mL eye drops loteprednol etabonate 0.5 % eye 1 drp ophthalmic-Left MOWEFR@0900 04/04/23 04/04/23 04/02/23 History drops,suspension prednisone 20 mg tablet See Rx Instructions .Route .COMPLEX 04/04/23 04/04/23 04/03/23 History tamsulosin 0.4 mg capsule See Rx Instructions .Route .COMPLEX 04/04/23 04/04/23 04/03/23 History Physical Exam Vital Signs: Vital Signs: Last Vital Signs Temp 98 F 04/05/23 07:04 Pulse 58 04/05/23 07:04 Resp 18 04/05/23 07:04 BP 129/74 04/05/23 07:04 Pulse Ox 95 04/05/23 07:04 O2 Del Method Room Air 04/05/23 07:04 BMI result Body Mass Index 24.4 Const: General: healthy appearing, no acute distress and well developed Orientation/consciousness: patient oriented x3 HEENT: Head: Yes normocephalic and Yes atraumatic Eyes: Conjunctivae: conjunctivae normal Neck: Neck: Yes normal visual inspection Chest: Chest palpation & inspection: normal inspection of the chest Resp: Effort & Inspection: normal respiratory effort Cardio: Rate: regular rate GI: Inspection: Yes normal to inspection Skin: General skin exam: no rashes or lesions noted Neuro: General: patient oriented x3 Extrem: General: No pedal edema Psych: Appearance: grossly normal Affect: normal affect Results Results Labs: Short CBC 04/04/23 Range/Units 16:08 WBC 11.6 H (4.8-10.8) X10*3/uL Hgb 14.3 (14.0-18.0) g/dl Hct 43.5 (42.0-52.0) % Plt Count 217 (160-400) X10*3/uL BMP 04/04/23 16:08 Sodium 141 Potassium 4.1 Chloride 104 Carbon Dioxide 26 BUN 20 H Creatinine 1.52 H Calcium 9.6 Liver Function 04/04/23 Range/Units 16:08 Total Bilirubin 0.8 (0.0-1.0) mg/dL AST 21 (5-37) U/L ALT 18 (0-40) U/L Alkaline Phosphatase 86 (39-117) U/L Albumin 4.4 (3.5-5.0) g/dL Urine 04/04/23 Range/Units 16:08 Urine Color Yellow Urine Appearance Clear Urine pH 6.5 (5.0-9.0) Ur Specific [place] 1.020 (1.005-1.025) Urine Protein Negative (Neg-Trace) mg/dL Urine Glucose (UA) Negative (Negative) mg/dL Abdomen CT scan report/results: report reviewed and image reviewed CT scan - pelvis: report reviewed and image reviewed Additional studies: Date of Service: 04/04/23 EXAMINATION: CT ABDOMEN AND PELVIS WITHOUT CONTRAST CLINICAL INFORMATION: Worsening hydronephrosis. Known ureter stone. COMPARISON: CT abdomen pelvis 09/29/2022. TECHNIQUE: Multidetector volumetric imaging was performed from the superior aspect of the liver through the pubic symphysis. Sagittal and coronal reformatted images were obtained on the technologist's workstation. This CT examination was performed using dose optimization techniques as appropriate, variously including the following: *Automated exposure control *Adjustment of mA and/or kV according to patient size (this includes techniques or standardized protocols for targeted exams where dose is matched to indication/reason for exam; i.e. extremities or head) *Use of iterative reconstruction technique DLP: 501 mGy-cm FINDINGS: LUNG BASES: Minimal atelectatic changes or scarring lingula. Small os hiatal hernia is noted. LIVER, GALLBLADDER, AND BILIARY TREE: The liver is normal in size, shape, and attenuation. There are multiple benign liver cysts. No solid lesion. No intrahepatic ductal dilatation.. The gallbladder is unremarkable with no evidence of radiopaque gallstones, gallbladder wall thickening, or obvious pericholecystic inflammatory changes. PANCREAS: Unremarkable. SPLEEN: Unremarkable. ADRENAL GLANDS: Unremarkable. KIDNEYS AND URETERS: The kidneys are normal in size, shape, and attenuation. There is a nonobstructive 4 mm radiopaque calculi lower pole right kidney. No hydronephrosis. There is a 7 mm a subcutaneous radiopaque calculi left proximal ureter with hydroureteronephrosis. There is mild bilateral perinephric stranding.. BLADDER: Unremarkable. GASTROINTESTINAL TRACT: There is scattered stool, diverticuli and gas seen throughout the colon without significant distention or diverticulitis. The small bowel loops are normal caliber. Appendix is normal caliber. The stomach is nondistended with a small hiatal hernia. ABDOMINAL WALL: There is a left inguinal hernia with large amount of mesenteric fat and a loop of sigmoid colon at the deep inguinal ring opening. LYMPH NODES: Normal. VASCULAR: Unremarkable. PELVIC VISCERA: The prostate gland is markedly enlarged. There are several phleboliths in the pelvis. OSSEOUS STRUCTURES: There are degenerative disc changes L5-S1 disc level. No aggressive lytic or sclerotic process seen. IMPRESSION: 1. 7 mm obstructive radiopaque calculi left proximal ureter with hydroureteronephrosis. 2. Nonobstructive 4 mm radiopaque calculi lower pole right kidney. 3. Colonic diverticulosis without diverticulitis. Mild constipation. 4. Left inguinal hernia with mesenteric fat and a loop of sigmoid colon at the deep inguinal ring opening. Assessment and Plan (1) Left ureteral calculus: Status: Acute (2) Hydronephrosis: Status: Acute (3) Kidney stone: Status: Acute Plan Cont NPO Dr. Valladares to perform procedure as an add on late this afternoon at the end of scheduled procedures left ureteral stent possible ureteroscopy laser Quality Stroke Does the patient have a stroke diagnosis?: No VTE Prior VTE?: No VTE Risk Level:: Medical - low VTE Device Contraindication: N/A - Device Ordered VTE Drug Contraindication: N/A - Med Ordered Procedures Date of Service Date of Service: 04/05/23
--- NOTE | 2023-04-05 09:21 | MHC.CM.PN ---
Addendum entered by Juanita Adkins RN 04/06/23 13:28: PT MEDICALLY CLEARED FOR DC, HOME SELF CARE. TO TRANSPORT AT APPROX 2:30PM. PATIENT AND RN AWARE. Original Note: PT FROM HOME WITH , INDEPENDENT, NO SERVICES. STATES BRIANA IS HCP, COPY REQUESTED PCP: AARON REBOLLEDO MD DP: GOAL IS HOME, SELF CARE, TO TRANSPORT. CM WILL CONTINUE TO FOLLOW.
--- NOTE | 2023-04-05 11:58 | PM.UROCN ---
History of Present Illness Consult details Consult date: 04/05/23 Narrative: CC: left proximal ureteric stone with elevated creatinine 73-year-old male Initial presentation to hospital on 04/01 with left flank pain. Diagnosis him mm proximal ureteric stone with hydronephrosis. Had been sent home on pain medication with tamsulosin Repeated admission to emergency room with pain, secondary nausea, vomiting. Repeat CT scan performed which shows stone in same position Creatinine of 1.52, WBC 11.6, calcium 9.6 CT scan 1. 7 mm obstructive radiopaque calculi left proximal ureter with hydroureteronephrosis. 2. Nonobstructive 4 mm radiopaque calculi lower pole right kidney. recommendation for cystoscopy, left retrograde, left stent placement. Would let kidney recovered and have subsequent follow-up ESWL. Review of Systems Constitutional: Constitutional: Reports as per HPI and Reports no additional constitutional complaints Cardiovascular: Cardiovascular: Reports as per HPI and Reports no additional cardiovascular complaints Respiratory: Respiratory: Reports as per HPI and Reports no additional respiratory complaints Gastrointestinal: Gastrointestinal: Reports as per HPI and Reports no additional gastrointestinal complaints Genitourinary: Genitourinary: Reports as per HPI Musculoskeletal: Musculoskeletal: Reports no additional musculoskeletal complaints and Reports as per HPI Neurologic: Reports system reviewed and no additional complaints, except as documented and Reports as per HPI [facility] Past Medical History Medical History (Updated 04/05/23 @ 12:02 by Petros Valladares MD) Glaucoma Surgical History Surgical History (Updated 04/05/23 @ 11:29 by Alessandra Casillas RN) Hx of rotator cuff surgery History of back surgery Hx of bilateral cataract extraction Social History Social History Household Members: Spouse Housing: House Do you presently have visiting nurse or other home services: No Alcohol intake: former Patient Tobacco Use Status: Former Tobacco user Quit Date: 20 yrs ago Smoked in Last 30 Days: No Use of substances other than those prescribed or required for medical reasons: No Have you been hit, kicked, punched, or otherwise hurt by someone within the past year? If so, by whom?: No Do you feel safe in your current relationship?: Yes Is there a partner from a previous relationship who is making you feel unsafe now?: No Are you made to feel afraid or neglected: No Are you DNR?: No Advance Directives: No Advance Directives Information Provided: No Do you have thoughts of harming others: None Do you have a plan to hurt others: No Plan Recently lost weight without trying: No Eating poorly because of decreased appetite: No Nutrition Risks: No Nutritional Risk Poor oral hygiene: No service: No Meds Allergies Allergy/AdvReac Type Severity Reaction Status Date / Time No Known Allergies Allergy Verified 04/04/23 14:36 Active Medications: Current Medications Lactated Ringer's (Lr) 1,000 mls @ 125 mls/hr IVCONT .Q8H [facility] Last Admin: 04/05/23 10:20 Dose: 125 mls/hr Morphine Sulfate (Morphine Sulfate 4 Mg/Ml Cartridge) 4 mg IVPUSH RQ4H PRN; Protocol PRN Reason: Pain, Severe (Pain Scale 7-10) Last Admin: 04/05/23 07:34 Dose: 4 mg Ondansetron HCl (Ondansetron Hcl 4 Mg/2 Ml Vial) 4 mg IVPUSH RQ6H PRN PRN Reason: Nausea and Vomiting Sodium Chloride (0.9 % Sodium Chloride Flush 3 Ml Syringe) 3 ml IVFLUSH QSHIFT [facility] Last Admin: 04/05/23 07:16 Dose: Not Given Home Medications Medication Instructions Recorded Confirmed Last Taken Type dorzolamide 22.3 mg-timolol 6.8 1 drp ophthalmic-Right DAILY 04/04/23 04/04/23 04/03/23 History mg/mL eye drops loteprednol etabonate 0.5 % eye 1 drp ophthalmic-Left MOWEFR@0900 04/04/23 04/04/23 04/02/23 History drops,suspension prednisone 20 mg tablet See Rx Instructions .Route .COMPLEX 04/04/23 04/04/23 04/03/23 History tamsulosin 0.4 mg capsule See Rx Instructions .Route .COMPLEX 04/04/23 04/04/23 04/03/23 History Physical Exam Vital Signs: Vital Signs: Last Vital Signs Temp 99.4 F 04/05/23 11:38 Pulse 66 04/05/23 11:38 Resp 15 04/05/23 11:38 BP 139/67 04/05/23 11:38 Pulse Ox 93 04/05/23 11:38 O2 Del Method Room Air 04/05/23 11:38 BMI result Body Mass Index 24.4 Const: General: cooperative, healthy appearing, comfortable and no acute distress Orientation/consciousness: patient oriented x3 HEENT: Face and sinus: Yes normal facial exam Mouth: moist mucous membranes Neck: Neck: Yes normal visual inspection, Yes full ROM and Yes trachea midline Chest: Chest palpation & inspection: normal inspection of the chest Resp: Effort & Inspection: normal respiratory effort, able to speak in complete sentences and no respiratory distress GI: Inspection: Yes normal to inspection Back/Spine/Pelvis: Cervical Spine: normal cervical lordosis Thoracic/Lumbar Spine: thoracic and lumbar spine normal to inspection Skin: General skin exam: no rashes or lesions noted Neuro: General: patient oriented x3, tone normal and moves all extremities Extrem: General: Yes normal to inspection and Yes capillary refill normal Results Labs 04/04/23 16:08 04/04/23 16:08 Labs: Abnormal lab results 04/04/23 Range/Units 16:08 WBC 11.6 H (4.8-10.8) X10*3/uL RBC 4.33 L (4.60-5.80) X10*6/uL MCV 100.5 H (80.0-98.0) fL Immature Gran % (Auto) 0.7 H (0.0-0.4) % Neut % (Auto) 90.2 H (45-73) % Lymph % (Auto) 5.3 L (20-40) % Lymph # (Auto) 0.6 L (1.2-4.9) X10*3/uL Abs Immat Gran (auto) 0.08 H (0.00-0.03) X10*3/uL Absolute Neuts (auto) 10.5 H (2.0-8.3) x10*3/uL BUN 20 H (9-16) mg/dL Creatinine 1.52 H (0.5-1.4) mg/dL Random Glucose 140 H (60-115) mg/dL Urine Blood Moderate (2+) H (Negative) Urine RBC >20 H (0-2) /HPF Short CBC 04/04/23 Range/Units 16:08 WBC 11.6 H (4.8-10.8) X10*3/uL Hgb 14.3 (14.0-18.0) g/dl Hct 43.5 (42.0-52.0) % Plt Count 217 (160-400) X10*3/uL BMP 04/04/23 16:08 Sodium 141 Potassium 4.1 Chloride 104 Carbon Dioxide 26 BUN 20 H Creatinine 1.52 H Calcium 9.6 Liver Function 04/04/23 Range/Units 16:08 Total Bilirubin 0.8 (0.0-1.0) mg/dL AST 21 (5-37) U/L ALT 18 (0-40) U/L Alkaline Phosphatase 86 (39-117) U/L Albumin 4.4 (3.5-5.0) g/dL Urine 04/04/23 Range/Units 16:08 Urine Color Yellow Urine Appearance Clear Urine pH 6.5 (5.0-9.0) Ur Specific [place] 1.020 (1.005-1.025) Urine Protein Negative (Neg-Trace) mg/dL Urine Glucose (UA) Negative (Negative) mg/dL All other labs normal. Assessment and Plan (1) Hydronephrosis: Status: Acute (2) Left ureteral calculus: Status: Acute (3) Acute kidney injury (nontraumatic): Status: Acute Plan Risks, benefits and alternatives to therapy were discussed. These include but are not limited to infection, bleeding, damage to local organs and tissues, need for further interventions. Anesthetic risks regarding cardiac arrhythmia, blood clots, and potential mortality were discussed. The patient understands the typical recovery time and the outpatient nature of the procedure. After consideration of these risks the patient gives full informed consent and they wish to move ahead with the procedure. cystoscopy, left retrograde, left stent placement Procedures Date of Service Date of Service: 04/05/23
--- NOTE | 2023-04-05 12:00 | HO.ANESPROP2 ---
HPI - Anesthesia Eval Consult details Narrative: left urethral stone PMFSH Active Problems Active Problems: All Active Problems (Updated 04/05/23 @ 11:28 by Alessandra Casillas RN) Kidney stone (Acute) Hydronephrosis (Acute) Left ureteral calculus (Acute) Past Medical History Medical History (Updated 04/05/23 @ 11:28 by Alessandra Casillas RN) Glaucoma Family History Family history of problems with anesthesia: No Surgical History Surgical History (Updated 04/05/23 @ 11:29 by Alessandra Casillas RN) Hx of rotator cuff surgery History of back surgery Hx of bilateral cataract extraction History of Problems with Anesthesia: No Social History Social History Household Members: Spouse Housing: House Do you presently have visiting nurse or other home services: No Alcohol intake: former Patient Tobacco Use Status: Former Tobacco user Quit Date: 20 yrs ago Smoked in Last 30 Days: No Use of substances other than those prescribed or required for medical reasons: No Have you been hit, kicked, punched, or otherwise hurt by someone within the past year? If so, by whom?: No Do you feel safe in your current relationship?: Yes Is there a partner from a previous relationship who is making you feel unsafe now?: No Are you made to feel afraid or neglected: No Are you DNR?: No Advance Directives: No Advance Directives Information Provided: No Do you have thoughts of harming others: None Do you have a plan to hurt others: No Plan Recently lost weight without trying: No Eating poorly because of decreased appetite: No Nutrition Risks: No Nutritional Risk Poor oral hygiene: No service: No Meds Allergies Allergy/AdvReac Type Severity Reaction Status Date / Time No Known Allergies Allergy Verified 04/04/23 14:36 Active Medications: Current Medications Lactated Ringer's (Lr) 1,000 mls @ 125 mls/hr IVCONT .Q8H [facility] Last Admin: 04/05/23 10:20 Dose: 125 mls/hr Morphine Sulfate (Morphine Sulfate 4 Mg/Ml Cartridge) 4 mg IVPUSH RQ4H PRN; Protocol PRN Reason: Pain, Severe (Pain Scale 7-10) Last Admin: 04/05/23 07:34 Dose: 4 mg Ondansetron HCl (Ondansetron Hcl 4 Mg/2 Ml Vial) 4 mg IVPUSH RQ6H PRN PRN Reason: Nausea and Vomiting Sodium Chloride (0.9 % Sodium Chloride Flush 3 Ml Syringe) 3 ml IVFLUSH QSHIFT [facility] Last Admin: 04/05/23 07:16 Dose: Not Given Home Medications Medication Instructions Recorded Confirmed Last Taken Type dorzolamide 22.3 mg-timolol 6.8 1 drp ophthalmic-Right DAILY 04/04/23 04/04/23 04/03/23 History mg/mL eye drops loteprednol etabonate 0.5 % eye 1 drp ophthalmic-Left MOWEFR@0900 04/04/23 04/04/23 04/02/23 History drops,suspension prednisone 20 mg tablet See Rx Instructions .Route .COMPLEX 04/04/23 04/04/23 04/03/23 History tamsulosin 0.4 mg capsule See Rx Instructions .Route .COMPLEX 04/04/23 04/04/23 04/03/23 History Exam Height,Weight and Vital Signs: Height 5 ft 9 in Weight 74.843 kg Last Vital Signs Temp 99.4 F 04/05/23 11:38 Pulse 66 04/05/23 11:38 Resp 15 04/05/23 11:38 BP 139/67 04/05/23 11:38 Pulse Ox 93 04/05/23 11:38 O2 Del Method Room Air 04/05/23 11:38 Pertinent Lab Results Pertinent Lab Results: Laboratory Tests 04/04/23 16:08 WBC 11.6 H RBC 4.33 L Hgb 14.3 Hct 43.5 MCV 100.5 H MCH 33.0 MCHC 32.9 RDW 13.7 Plt Count 217 MPV 11.8 Immature Gran % (Auto) 0.7 H Neut % (Auto) 90.2 H Lymph % (Auto) 5.3 L [place] % (Auto) 3.4 Eos % (Auto) 0.2 Baso % (Auto) 0.2 Lymph # (Auto) 0.6 L [place] # (Auto) 0.4 Eos # (Auto) 0.0 Baso # (Auto) 0.0 Abs Immat Gran (auto) 0.08 H Absolute Neuts (auto) 10.5 H Absolute Nucleated RBC 0.000 Nucleated RBC % (auto) 0.0 Smear Tech's Comments VERIFIED Sodium 141 Potassium 4.1 Chloride 104 Carbon Dioxide 26 Anion Gap 15 BUN 20 H Creatinine 1.52 H Estim Creat Clear Calc 44.5 Estimated GFR 45 Random Glucose 140 H Calcium 9.6 Total Bilirubin 0.8 AST 21 ALT 18 Alkaline Phosphatase 86 Total Protein 7.9 Albumin 4.4 Urine Color Yellow Urine Appearance Clear Urine pH 6.5 Ur Specific [place] 1.020 Urine Protein Negative Urine Glucose (UA) Negative Urine Ketones 40 Urine Blood Moderate (2+) H Urine Nitrite Negative Ur Leukocyte Esterase Negative Urine RBC >20 H Urine WBC 0-5 Ur Squamous Epith Cells 0-2 Urine Bacteria None Seen Hyaline Casts 0-2 Airway Mallampati Class: III TM Dist: <=3cm Neck ROM: Limited Heart: rrr Lungs: cta Assessment and Plan Assessment Anesthesia Assessment: Anesthesia Plan Discussed and Chart Reviewed Final Anesthetic Review Family History of Problems with Anesthesia: No History of Problems with Anesthesia: No NPO: Yes ASA Class: II Final Preanesthetic Review: No Changes in Pt Med Stat, Meds/Allgs Chart Reviewed, Consent Obtained/Reviewed and Anes Risks/Benef Reviewed Patient Risk: Low Procedure Risk: Low Anesthetic Plan Anesthetic Plan: GA and Agree w/ Assess. and Plan Disposition: Standard PACU
--- NOTE | 2023-04-05 12:09 | MHC.SHP ---
Pre-Procedural Eval Section A Date of Service: 04/05/23 The patient is an INPATIENT: Yes Changes since office visit: No Cold of Flu in the past 2 weeks, No New Medical Problems, No Changes in Medication and No Patient answered all questions The History & Physical has been completed within 30 days and I have reviewed it.: Yes Section B Chief Complaint: L renal colic Allergies: Allergies Allergy/AdvReac Type Severity Reaction Status Date / Time No Known Allergies Allergy Verified 04/04/23 14:36 Plan I have reviewed the history and physical and performed a pertinent physical examination on my patient. No changes have occurred unless specified. Time Spent With Patient Time: Total time managing care of this patient today ____ minutes.
--- NOTE | 2023-04-05 12:41 | W.PM.OPN ---
Operative Note Operative Note Date of Service: 04/05/23 Narrative: PreOperative Diagnosis: left proximal ureteric stone Post Operative Diagnosis: left proximal ureteric stone with hydronephrosis Procedure: cystoscopy, left retrograde, left stent placement Surgeon: Dr Petros Valladares Anesthesia: sedation Indications for procedure: obstructing proximal left ureteric stone with creatinine 1.5 Procedure: After informed consent was verified the patient was brought to the operating room and placed in a supine position. Anesthesia was administered per protocol. The patient was placed in modified dorsal lithotomy position and prepped and draped in a sterile fashion. A safety pause time-out was performed. Laterality of procedure and antibiotics were confirmed, appropriate imaging was available A 22 Nepali cystoscope was introduced per urethra. No abnormality was noted of urethra or bladder. Both ureteric orifices were seen in a normal position. The left ureter was cannulated with an open ended catheter and a retrograde examination was performed. obstruction noted in proximal left ureter with proximal hydroureteronephrosis. . A Sensor guidewire was placed under fluoroscopy and a good coil was seen within the renal pelvis. A Six Nepali by 26 cm double J stent was advanced over the wire and up to the level of the renal pelvis under fluoroscopic and direct visualization. The stent was seen with appropriate coil within the renal pelvis and in the bladder after deployment. The patient tolerated the procedure well and was transferred in a stable condition to the recovery area. Pathology: Drains: as above
[2023-04-05] MEDS: Phenazopyridine HCL 100 MG TABLET PO (12:55)
[2023-04-05] MEDS: oxyCODONE HCl Immed Release 5 MG TABLET PO (22:01)
[2023-04-06] MEDS: Lactated Ringers 1,000 ML 125 ML IVCONT (03:22)
[2023-04-06 04:00] VITALS: BP 138/74; PULSE 72; RESP 18; TEMP 36.6; O2SAT 93
--- NOTE | 2023-04-06 06:48 | HO.POSTANES ---
Post Anesthesia Evaluation Post Anesthesia Evaluation Date of Service: 04/06/23 Vital Signs: Vital Signs Temp Pulse Resp BP Pulse Ox O2 Del Method 04/06/23 04:00 97.9 F 72 18 138/74 93 Room Air 04/05/23 22:00 98.4 F 72 18 139/77 94 Room Air Anesthesia: General Mental Status: Awake Pain Control: Satisfactory Nausea/Vomiting: None Hydration: Adequate Anesthesia-Related Issues: No Anes. Related Issues
[2023-04-06 08:14] VITALS: BP 169/82; PULSE 74; RESP 20; TEMP 36.6; O2SAT 98
--- NOTE | 2023-04-06 13:32 | MHC.CM.PN ---
PT MEDICALLY CLEARED FOR DC, HOME SELF CARE. TO TRANSPORT AT APPROX 2:30PM. PATIENT AND RN AWARE.
--- NOTE | 2023-06-25 17:00 | PM.DS ---
DS: Providers Provider Date of Service: 04/06/23 Date of admission: 04/04/23 18:06 Primary care physician: Rufino Lizarraga MD DS: Diagnosis Discharge Diagnosis (1) Hydronephrosis: Start date: 04/05/23 Status: Resolved (2) Left ureteral calculus: Start date: 04/05/23 Status: Acute (3) Acute kidney injury (nontraumatic): Status: Resolved DS: Summary Hospital Course Hospital Course: admit 04/05/23 with kidney stone Underwent procedure with stent placement Remained overnight in hospital Followed by discharge Status at Discharge Functional status at discharge: independent ambulation Overall status at discharge: patient is back to baseline Time Attestation Discharge coordination time: Less than 30 minutes Quality: Safe Use of Opioids Does Pt have an Active Cancer Diagnosis on the Problem List?: No Quality: Stroke Does the patient have a stroke diagnosis?: No Physical Exam Vital Signs: Vital Signs: Last Vital Signs Temp 97.8 F 04/06/23 08:14 Pulse 74 04/06/23 08:14 Resp 20 04/06/23 08:14 BP 169/82 H 04/06/23 08:14 Pulse Ox 98 04/06/23 08:14 O2 Del Method Room Air 04/06/23 08:14 BMI result Body Mass Index 24.4 DS: Data Data Completed and Pending Completed studies during hospitalization [Text1]: Procedures Dilation of Left Ureter with Intraluminal Device, Via Natural or Artificial Opening Endoscopic (04/04/23) Fluoroscopy of Left Kidney, Ureter and Bladder (04/04/23) Imaging CT scan - abdomen: Attestation: I personally reviewed and interpreted this imaging study as follows: Radiologist's impression: ITS Impressions Abdomen/Pelvis CT 04/04/23 15:12 IMPRESSION: 1. 7 mm obstructive radiopaque calculi left proximal ureter with hydroureteronephrosis. 2. Nonobstructive 4 mm radiopaque calculi lower pole right kidney. 3. Colonic diverticulosis without diverticulitis. Mild constipation. 4. Left inguinal hernia with mesenteric fat and a loop of sigmoid colon at the deep inguinal ring opening. Fleischner guidelines were followed. Guidance Fluoroscopy 04/05/23 12:41 IMPRESSION: Fluoroscopy provided for left ureteral stent placement. Discharge Plan Discharge Anticipated Discharge Date/Time: 04/06/23 12:49 Patient Disposition: Home, Self-Care Discharge Diagnosis: Ureteral stone, nephrolithiasis Referrals: Rufino Lizarraga MD [Primary Care Provider] - 1 Week Discharge Medications: Continued oxycodone 5 mg tablet 5 mg PO Q8H PRN (Reason: pain) Qty: 9 0RF Rx Instructions: Partial Fill upon patient request. dorzolamide-timolol 22.3-6.8 mg/mL drops 1 drp ophthalmic-Right DAILY loteprednol etabonate 0.5 % drops,suspension 1 drp ophthalmic-Left MOWEFR@0900 Discontinued ondansetron HCl 4 mg tablet 4 mg PO Q8H PRN (Reason: nausea and vomiting) Qty: 10 0RF prednisone 20 mg tablet See Rx Instructions .ROUTE .COMPLEX Rx Instructions: 20 mg orally DAILY; END DATE: 04/06/23 No Action oxycodone-acetaminophen 5-325 mg tablet 1 tab PO Q4H PRN (Reason: pain (scale score 4-6)) 7 Days Qty: 14 0RF Rx Instructions: Partial Fill upon patient request. tamsulosin 0.4 mg capsule 0.4 mg PO BEDTIME 30 Days Qty: 30 1RF phenazopyridine [Pyridium] 100 mg tablet 100 mg PO TID PRN (Reason: Spasm) 4 Days Qty: 12 0RF naproxen 500 mg tablet 500 mg PO BID PRN (Reason: pain) 7 Days Qty: 14 0RF Discharge Orders: Discharge Order (Routine); Ordered 04/06/23 Ordered By: Annabelle Elias Diet: Advance to usual diet Activity on Discharge: As tolerated Stand Alone Forms: Patient Portal Discharge page Care Plan Goals: FU with urology as outpatient in 14 - 21 days Health Concerns: Increase fluid intake 48- 64 ounces Plan of Treatment: FU with urology outpatient Assessment: Stable, s/p ureteral stent Discharge Date/Time: 04/06/23 15:15
== END 2023-04-06 15:15 | disposition home or self-care (01) | DRG 661 ==
LOC: HO.ED 16:29 → HO.EDOVER 18:36 → HO.S3 04-05 06:39
PROVIDERS: Physician Assistant; Urology; Admitting Provider Internal Medicine; Emergency Provider Internal Medicine; PCP Internal Medicine; Visit Provider Urology
PROC: 0T778DZ Dilation of Left Ureter with Intraluminal Device, Via Natural or Artificial Opening Endoscopic (ICD-10-PCS; principal; 2023-04-05 13:20)
DX: N13.2 Hydronephrosis with renal and ureteral calculous obstruction (principal); Z79.899 Other long term (current) drug therapy
CPT/HCPCS: 36415; 74176; 80053; 81001; 85025; 99285; C1758; C1769; C2617; J1100; J1885; J1956; J2270; J2704; J7120; Q9967

== ENCOUNTER → 2023-04-04 18:06 | Outpatient (BNV) | payer OTHER, SELFPAY | PROVIDERS: Admitting Provider Internal Medicine; Emergency Provider Internal Medicine; PCP Internal Medicine; Visit Provider Urology | DX: N13.30 Unspecified hydronephrosis (principal); N20.1 Calculus of ureter; N17.9 Acute kidney failure, unspecified | CPT/HCPCS: 52332; 74420; 99222; 99238 ==

== ENCOUNTER 2023-04-21 07:51 | Day surgery (SDC) | payer OTHER, SELFPAY ==
--- NOTE | 2023-04-20 09:06 | HO.ANESPROP2 ---
Documented by User: Batsheva Ray NP 04/20/23 09:09 HPI - Anesthesia Eval Consult details Narrative: 73yo M for Left Lithotripsy ESW,with stent removal, s/p cysto stent 04/2023 GA-LMA 4 PMFSH Active Problems Active Problems: All Active Problems (Updated 04/19/23 @ 10:05 by Isha Peralta RN) Kidney stone (Acute) Left ureteral calculus (Acute) Past Medical History Medical History Renal calculi Glaucoma Family History Family history of problems with anesthesia: No Surgical History Surgical History Hx of cystoscopy Hx of rotator cuff surgery History of back surgery Hx of bilateral cataract extraction History of Problems with Anesthesia: No Social History Social History Household Members: Spouse Housing: House Do you presently have visiting nurse or other home services: No Alcohol intake: former Patient Tobacco Use Status: Former Tobacco user Quit Date: 20 yrs ago Advance Directives: No Advance Directives Information Provided: Yes service: No Meds Allergies Allergy/AdvReac Type Severity Reaction Status Date / Time No Known Allergies Allergy Verified 04/04/23 14:36 Home Medications Medication Instructions Recorded Confirmed Last Taken Type dorzolamide 22.3 mg-timolol 6.8 1 drp ophthalmic-Right DAILY 04/04/23 04/04/23 04/03/23 History mg/mL eye drops loteprednol etabonate 0.5 % eye 1 drp ophthalmic-Left MOWEFR@0900 04/04/23 04/04/23 04/02/23 History drops,suspension tamsulosin 0.4 mg capsule See Rx Instructions .Route .COMPLEX 04/04/23 04/04/23 04/03/23 History Exam Pertinent Lab Results Pertinent Lab Results: Laboratory Tests 04/04/23 16:08 WBC 11.6 H Hgb 14.3 Hct 43.5 Plt Count 217 Sodium 141 Potassium 4.1 Chloride 104 Carbon Dioxide 26 BUN 20 H Creatinine 1.52 H Assessment and Plan Assessment Anesthesia Assessment: Chart Reviewed Final Anesthetic Review Family History of Problems with Anesthesia: No History of Problems with Anesthesia: No Documented by User: Mayi Grissom MD 04/21/23 08:35 PMFSH Past Medical History Medical History Renal calculi Glaucoma Surgical History Surgical History Hx of cystoscopy Hx of rotator cuff surgery History of back surgery Hx of bilateral cataract extraction Social History Social History Household Members: Spouse Housing: House Do you presently have visiting nurse or other home services: No Alcohol intake: former Patient Tobacco Use Status: Former Tobacco user Quit Date: 20 yrs ago Advance Directives: No Advance Directives Information Provided: Yes service: No Meds Allergies Allergy/AdvReac Type Severity Reaction Status Date / Time No Known Allergies Allergy Verified 04/04/23 14:36 Home Medications Medication Instructions Recorded Confirmed Last Taken Type dorzolamide 22.3 mg-timolol 6.8 1 drp ophthalmic-Right DAILY 04/04/23 04/04/23 04/03/23 History mg/mL eye drops loteprednol etabonate 0.5 % eye 1 drp ophthalmic-Left MOWEFR@0900 04/04/23 04/04/23 04/02/23 History drops,suspension tamsulosin 0.4 mg capsule See Rx Instructions .Route .COMPLEX 04/04/23 04/04/23 04/03/23 History Exam Airway Mallampati Class: II TM Dist: >3cm Neck ROM: Full Heart: rrr Lungs: cta Assessment and Plan Assessment Anesthesia Assessment: Anesthesia Plan Discussed Final Anesthetic Review NPO: Yes ASA Class: II Final Preanesthetic Review: No Changes in Pt Med Stat, Meds/Allgs Chart Reviewed, Consent Obtained/Reviewed and Anes Risks/Benef Reviewed Patient Risk: Low Procedure Risk: Low Anesthetic Plan Anesthetic Plan: GA Disposition: Standard PACU
--- NOTE | ~2023-04-21 | XR_ITS ---
EXAMINATION: XR ABDOMEN KUB CLINICAL INDICATION: Left renal stone COMPARISON: CT abdomen pelvis 04/04/2023 TECHNIQUE: AP view of the abdomen. FINDINGS: The bowel gas pattern is normal with no evidence of ileus or obstruction. A left-sided double-J internally dwelling ureteral stent is present. Again noted is a 4 mm left lower pole renal calculus. No unusual soft tissue calcifications are noted. The bones are unremarkable. XR/XR KUB IMPRESSION: Left-sided double-J internally dwelling ureteral stent. 4 mm left lower pole renal calculus.
[2023-04-21 08:32] VITALS: BMI 24.0
[2023-04-21] MEDS: Lactated Ringers 1,000 ML 999 ML IV (08:49)
[2023-04-21] MEDS: Acetaminophen 1,000 MG/100 ML PIGGYBACK 400 MG IV (08:54)
[2023-04-21 08:58] VITALS: BP 168/95; PULSE 73; RESP 16; TEMP 37; O2SAT 99
--- NOTE | 2023-04-21 09:31 | MHC.SHP ---
Pre-Procedural Eval Section A Date of Service: 04/21/23 The patient is an INPATIENT: No Changes since office visit: No Cold of Flu in the past 2 weeks, No New Medical Problems, No Changes in Medication and No Patient answered all questions The History & Physical has been completed within 30 days and I have reviewed it.: Yes Section B Chief Complaint: Calculus of kidney,hydronephrosis Details of Present Illness: left proximal ureteric stone with stent Medical History: No relevant PMH History of Previous Operations: No relevant previous surgery Allergies: Allergies Allergy/AdvReac Type Severity Reaction Status Date / Time No Known Allergies Allergy Verified 04/21/23 09:00 Review of Systems Sugical H&P ROS: Negative: Constitution, Cardiovascular, Respiratory, Neurological, Psychiatric, Hem-Onc, Allergic/Immunologic, Gastrointestinal, Genitourinary, Musculoskeletal, Integumentary, Endocrine and Eyes/Ears/Nose/Throat Exam Surgical H&P Exam: Normal: HEENT, Normal: Heart, Normal: Lungs, Normal: Extremities, Normal: Abdomen, Normal: Skin and Normal: Neurological Plan Diagnosis/Plan: Unchanged (left proximal ureter stone) I have reviewed the history and physical and performed a pertinent physical examination on my patient. No changes have occurred unless specified. Time Spent With Patient Time: Total time managing care of this patient today ____ minutes.
--- NOTE | 2023-04-21 10:09 | W.PM.OPN ---
Operative Note Operative Note Date of Service: 04/21/23 Narrative: PreOperative Diagnosis: left Renal stones with indwelling stent Post Operative Diagnosis: left Renal stones with indwelling stent Procedure: left ESWL with cystoscopy and stent removal Surgeon: Dr Petros Valladares Anesthesia: mac/sedation Indications for procedure: The patient understands ESWL may be a staged procedure and subsequent intervention may be required based on imaging after ESWL. Quoted stone clearance rates for a solitary procedure are in the 70-80% range based primarily on stone location. They also understand there is a risk of bleeding to the kidney, infection, damage to adjacent organs, and stone migration following the procedure. - Imaging left renal stones x2 - 7mm Procedure: After informed consent was verified the patient was brought to the operating room and placed in a supine position. Anesthesia was performed per protocol. Safety pause time-out was performed. Imaging was displayed in the room and laterality confirmed. ESWL was performed. The 1st 500 shocks were performed at 60 hertz. These were performed with increasing power. Once maximum power was reached the rate was increased to 180 hertz. A total of 2500 shocks were given. Targeted imaging with ultrasound/fluoroscopy showed stone smudging suggestive of disintegration. At completion of ESWL cystoscopy performed and left stent removed intact The patient tolerated the procedure well and was transferred to the recovery area upon completion. Post procedure imaging will be organized. There was no evidence for flank discoloration.
[2023-04-21 10:29] VITALS: BP 145/75; PULSE 76; RESP 16; TEMP 36.6; O2SAT 100
[2023-04-21 10:35] VITALS: BP 137/68; PULSE 78; RESP 16; O2SAT 97
[2023-04-21 10:40] VITALS: BP 145/86; PULSE 76; RESP 16; O2SAT 98
[2023-04-21 10:45] VITALS: BP 158/92; PULSE 72; RESP 16; O2SAT 98
== END 2023-04-21 12:04 | disposition home or self-care (01) ==
PROVIDERS: PCP Internal Medicine; Visit Provider Urology
PROC: (CPT 50590; principal; 2023-04-21 09:50)
DX: N20.0 Calculus of kidney (principal); Z96.0 Presence of urogenital implants; R79.89 Other specified abnormal findings of blood chemistry; H40.9 Unspecified glaucoma; Z79.52 Long term (current) use of systemic steroids; Z98.890 Other specified postprocedural states; Z79.899 Other long term (current) drug therapy; Z87.891 Personal history of nicotine dependence
CPT/HCPCS: 50590; 52310; 74018; J0131; J1940; J1956; J2250; J2704; J3010

== ENCOUNTER → 2023-04-21 07:51 | Outpatient (BNV) | payer OTHER, SELFPAY | PROVIDERS: PCP Internal Medicine; Visit Provider Urology | DX: N20.0 Calculus of kidney (principal); Z96.0 Presence of urogenital implants | CPT/HCPCS: 50590; 52310 ==

== ENCOUNTER 2023-06-17 10:20 | Outpatient (REF) | payer OTHER, SELFPAY ==
--- NOTE | ~2023-06-17 | US_ITS ---
EXAMINATION: US RETROPERITONEAL LIMITED (RENAL ONLY) CLINICAL INFORMATION: Calculus kidney. COMPARISON: X-ray KUB 04/21/2023. CT abdomen and pelvis 04/04/2023. TECHNIQUE: Real-time imaging of the kidneys. FINDINGS: RIGHT KIDNEY: 10.1 x 5.8 x 5.6 cm (SAG x AP x TRV). The kidney is normal in size, contour, and echogenicity. Renal cortical thickness is normal. No hydronephrosis. At the lower pole, a 3 mm nonobstructing calculus is seen, with twinkle artifact. At the lower pole, a 1.7 x 1.3 x 1.6 cm mildly complex (Bosniak 2) cyst is seen, with fine septation. This correlates with the CT examination of 04/04/2023 (3:37 and 7:55). The appearance is likely benign, and no imaging follow-up is recommended. LEFT KIDNEY: 11.2 x 5.2 x 4.7 cm (SAG x AP x TRV). The kidney is normal in size, contour, and echogenicity. Renal cortical thickness is normal. No calculi or focal parenchymal lesions. No hydronephrosis. US/US renal BI IMPRESSION: A 3 mm nonobstructing right renal calculus is seen. No left renal calculus is seen. No hydronephrosis is noted bilaterally.
== END 2023-06-17 10:21 | disposition home or self-care (01) ==
LOC: HO.US 10:20
PROVIDERS: PCP Internal Medicine; Visit Provider Urology
DX: N20.0 Calculus of kidney (principal)
CPT/HCPCS: 76775

== ENCOUNTER 2023-06-22 08:31 | Outpatient (REF) | payer OTHER, SELFPAY ==
[2023-07-01 16:47] LABS: Stone Source KIDNEY STONE
== END 2023-06-22 08:32 | disposition home or self-care (01) ==
LOC: HO.LAB 08:31
PROVIDERS: Visit Provider Urology
DX: N20.0 Calculus of kidney (principal)
CPT/HCPCS: 82365; 88300

== ENCOUNTER 2023-08-06 13:33 | Outpatient (AMB) | payer OTHER, SELFPAY ==
--- NOTE | 2023-08-06 13:35 | A.OFFVIS_ITS ---
Intake Intake Visit Reasons: US results/ post op Intake Note: Patient is Present for Telephone Follow Up For Urology Med: Tamsulosin Antibiotic Allergy: None Blood Thinner: None Allergies No Known Allergies Allergy (Verified 04/21/23 09:00) Medication List - Last Reconciled 08/06/23 by Petros Valladares MD dorzolamide-timolol 22.3-6.8 mg/mL 1 drp ophthalmic-Right DAILY loteprednol etabonate 0.5% 1 drp ophthalmic-Left MOWEFR@0900 naproxen 500 mg PO BID PRN 7 days oxycodone 5 mg PO Q8H PRN oxycodone-acetaminophen 5-325 mg 1 tab PO Q4H PRN 7 days phenazopyridine (Pyridium) 100 mg PO TID PRN 4 days tamsulosin 0.4 mg PO BEDTIME 30 days HPI HPI Comments History of Present Illness Details Alok is a pleasant male. He is a patient of Dr. Lizarraga. He is seen for the following urologic conditions - nephrolithiasis Telemedicine Evaluation 15 min Consultation Doximity Elizabeth Video attempted No stone seen on left side of current ultrasound. Small 4 mm stone right. Encourage fluid intake with lemon Interval surveillance Nephrolithiasis Hospital presentation April 2023 Underwent stent placement followed by ESWL 7 mm proximal left ureteric stone PFSH Medical History Renal calculi Glaucoma Surgical History Hx of cystoscopy Hx of rotator cuff surgery History of back surgery Hx of bilateral cataract extraction Social History Household Members: Spouse Housing: House Do you presently have visiting nurse or other home services: No Alcohol intake: former Patient Tobacco Use Status: Former Tobacco user Quit Date: 50 YRS AGO service: No Review of Systems Const All systems reviewed & are unremarkable except as noted in HPI and below Reports no additional complaints Resp Reports no additional complaints GI Reports no additional complaints Reports as per HPI Musc Reports no additional complaints Physical Exam Telemedicine evaluation Appropriate responses Regular breathing rate and rhythm HEENT Head: Yes normal to inspection Ears: hearing grossly normal bilaterally Eyes General: appearance normal, both eyes and all related structures Neck Neck: Yes normal visual inspection Chest Chest palpation & inspection: normal inspection of the chest Resp Effort & Inspection: normal respiratory effort and able to speak in complete sentences Assessment & Plan Assessment & Plan (1) Left ureteral calculus: Code(s): N20.1 - Calculus of ureter Plan Six-month follow-up imaging Orders: Orders US renal BI 6 Months N20.1 - Calculus of ureter Patient Instructions: Imaging studies, laboratory and physical exam results were discussed and reviewed in detail. No major barriers to patient understanding were identified. An opportunity to ask questions regarding the treatment plan was provided. All questions were answered. The patient expressed understanding and agreement with the above treatment plan. The patient is aware they should contact our office by phone for worsening of their current condition or the appearance of new urologic symptoms. Compliance is encouraged with any medications and followup testing that is ordered. It is a privilege to participate in the urologic care of your patient. If you have any questions or concerns regarding treatment for the above conditions, or other urologic issues, please do not hesitate to contact me. The office telephone contact is [phone]. This note is constructed using voice recognition software. While every effort has been made to ensure accuracy agricultural education instructor errors may have been included. Yours sincerely, Dr Petros Valladares MD, [facility] - Urology Providers of Expert, Compassionate Care for the Genitourinary System Telehealth Telehealth Location of provider rendering services: practice address Location of patient: address on file Patient Identification confirmed using: Name, : Yes Telehealth method: video Patient verbally consented to treatment: Yes Patient verbally consented to billing insurance company: Yes Patient informed of any privacy concerns related to visit: Yes Coding Level of Care Code Tele Est Pt Level 3 (44748) Diagnoses Left ureteral calculus N20.1
== END 2023-08-06 14:21 | disposition home or self-care (01) ==
LOC: HO.HUSH 13:33
PROVIDERS: PCP Internal Medicine; Visit Provider Urology
DX: N20.1 Calculus of ureter (principal)
CPT/HCPCS: 99213

== ENCOUNTER → 2023-08-06 13:33 | Outpatient (BNVA) | payer OTHER, SELFPAY | PROVIDERS: PCP Internal Medicine; Visit Provider Urology ==

== ENCOUNTER 2024-01-01 08:53 | Emergency (ER) | payer OTHER, SELFPAY ==
--- NOTE | ~2024-01-01 | CT_ITS ---
EXAMINATION: CT ABDOMEN AND PELVIS WITHOUT CONTRAST CLINICAL INFORMATION: Question stone COMPARISON: CT abdomen and pelvis 04/04/2023 TECHNIQUE: Multidetector volumetric imaging was performed from the superior aspect of the liver through the pubic symphysis. Sagittal and coronal reformatted images were obtained on the technologist's workstation. This CT examination was performed using dose optimization techniques as appropriate, variously including the following: *Automated exposure control *Adjustment of mA and/or kV according to patient size (this includes techniques or standardized protocols for targeted exams where dose is matched to indication/reason for exam; i.e. extremities or head) *Use of iterative reconstruction technique DLP: 515 mGy-cm FINDINGS: LUNG BASES: Mild bibasilar subpleural reticulation with minimal traction bronchiectasis in the right lung base may reflect degree of fibrosis. Dense mitral annular calcifications. ABDOMINAL AND PELVIC WALL: Moderate left inguinal hernia containing fat and a nonobstructed knuckle of the sigmoid colon. LIVER AND BILIARY TREE: Similar appearance of cysts and hepatic hypodensities too small to definitively characterize. GALLBLADDER: Unremarkable. PANCREAS: Unremarkable. SPLEEN: Unremarkable. ADRENAL GLANDS: Unremarkable. KIDNEYS AND URETERS: A few new punctate nonobstructing left lower pole renal stones. New mild right hydronephrosis with a 0.3 cm obstructing stone in the right proximal ureter. Bosniak 1 right renal cysts, no follow-up imaging recommended. GASTROINTESTINAL TRACT: Small hiatal hernia. Colonic diverticulosis without evidence of diverticulitis. Normal appendix. VASCULAR: Unremarkable. LYMPH NODES/PERITONEUM: Stable Schmorl's node in the inferior endplate of L2. FREE FLUID: None. BLADDER: Unremarkable. PELVIC VISCERA: Prostate gland is mildly enlarged measuring 4.6 cm in transverse diameter. OSSEOUS STRUCTURES: Degenerative disc disease at L5-S1. CT/CT abdomen pelvis wo IV con IMPRESSION: 1. New mild right hydronephrosis with a 0.3 cm obstructing stone in the right proximal ureter. A few new punctate nonobstructing left lower pole renal stones are also seen. 2. Moderate left inguinal hernia containing fat and a nonobstructed knuckle of the sigmoid colon. 3. Mild bibasilar subpleural reticulation with minimal traction bronchiectasis in the right lung base may reflect degree of mild fibrosis. Electronically signed by: Zofia Felton MD 01/01/2024 12:16 PM EDT RP
[2024-01-01 09:12] VITALS: BP 121/85; PULSE 62; RESP 16; TEMP 36.4; O2SAT 99; BMI 24.1
--- NOTE | 2024-01-01 09:20 | ED_ITS ---
HPI - Abdominal Pain General Chief Complaint: Abdominal Pain Stated Complaint: r side pain quest kidney stone Time Seen by Provider: 01/01/24 09:16 Source: patient Mode of arrival: ambulatory Limitations: no limitations History of Present Illness HPI narrative: 73 years old male presented to the emergency department complaining of right side abdominal pain, that about 05:00, he is also complaining of vomiting MD elicited complaint: flank pain Onset (ago): hour(s) (4) Pain Consistency: constant Location: other (rt flank) Migration to: no migration Related Data Home Medications ?Medication ?Instructions ?Recorded ?Confirmed dorzolamide 22.3 mg-timolol 6.8 1 drp ophthalmic-Right DAILY 04/04/23 08/06/23 mg/mL eye drops loteprednol etabonate 0.5 % eye 1 drp ophthalmic-Left MOWEFR@0900 04/04/23 08/06/23 drops,suspension Previous Rx's ?Medication ?Instructions ?Recorded oxycodone 5 mg tablet 5 mg PO Q8H PRN pain #9 tabs 04/01/23 naproxen 500 mg tablet 500 mg PO BID PRN pain 7 days #14 04/21/23 tabs oxycodone-acetaminophen 5 mg-325 1 tab PO Q4H PRN pain (scale score 04/21/23 mg tablet 4-6) 7 days #14 tabs phenazopyridine 100 mg tablet 100 mg PO TID PRN Spasm 4 days #12 04/21/23 (Pyridium) tabs tamsulosin 0.4 mg capsule 0.4 mg PO BEDTIME 30 days #30 caps 04/21/23 oxycodone 5 mg capsule 5 mg PO Q8H PRN pain #12 caps 01/01/24 tamsulosin 0.4 mg capsule (Flomax) 0.8 mg (2 x 0.4 mg) PO BEDTIME #10 01/01/24 caps Allergies Allergy/AdvReac Type Severity Reaction Status Date / Time No Known Allergies Allergy Verified 01/01/24 09:12 Review of Systems Constitutional: Reports no additional constitutional complaints Reports system reviewed and no additional complaints, except as documented Cardiovascular: Reports no additional cardiovascular complaints Respiratory: Reports no additional respiratory complaints Musculoskeletal: Reports no additional musculoskeletal complaints [facility] Past Medical History [facility] Narrative: Kidney stone Medical History Renal calculi Glaucoma Surgical History Hx of cystoscopy Hx of rotator cuff surgery History of back surgery Hx of bilateral cataract extraction Social History Social History Household Members: Spouse Housing: House Do you presently have visiting nurse or other home services: No Alcohol intake: former Patient Tobacco Use Status: Former Tobacco user Advance Directives: No Advance Directives Information Provided: No Do you have a plan to hurt others: No Plan service: No Physical Exam ED Vital Signs: Vital Signs - 24 hr 01/01/24 09:12 01/01/24 12:26 Temperature 97.6 F 98.5 F Pulse Rate 62 74 Respiratory Rate 16 16 Blood Pressure 121/85 94/58 L Pulse Oximetry 99 96 Oxygen Delivery Method Room Air Room Air BMI result Body Mass Index 24.1 Const General: cooperative, comfortable and well developed Nutritional Appearance: average body habitus Orientation/consciousness: patient oriented x3 Limitations: no limitations HENMT Head: Yes normal to inspection Mouth: Normal oral and palatal mucosa present Neck Neck: Yes normal visual inspection Chest Chest palpation & inspection: normal inspection of the chest Cardio Jugular venous distension: no JVD Rate: regular rate GI Other: Tenderness in the right flank Inspection: Yes normal to inspection Percussion: Yes normal to percussion Auscultation: normal bowel sounds Skin General skin exam: no rashes or lesions noted Neuro General: patient oriented x3 Course Reevaluation(s) Reevaluation #1: Patient pain-free now, CT showed 3 mm stone, UA shows no sign of infection patient has a relationship with the Urology Dr. Valladares he will follow-up with him. Patient and are comfortable with the plan of care Time: 12:45 Medical Decision Making Medical Decision Making MDM Narrative: Patient presented with right flank pain working diagnosis renal colic will do CT administer analgesia Differential Diagnosis Differential Diagnoses: The differential diagnosis associated with the presentation includes Kidney stone/pyelonephritis/diverticulitis Admission/Observation Consideration of admission/observation: Escalation of care including admission/observation considered Lab Data MDM Lab Attestation statement: I reviewed the patient's lab results. 01/01/24 09:28 08/31/24 09:28 Labs: Lab Results 01/01/24 Range/Units 09:28 WBC 10.3 (4.8-10.8) X10*3/uL RBC 4.30 L (4.60-5.80) X10*6/uL Hgb 14.5 (14.0-18.0) g/dl Hct 42.9 (42.0-52.0) % MCV 99.8 H (80.0-98.0) fL MCH 33.7 H (27.0-33.0) pg MCHC 33.8 (31.0-36.0) g/dl RDW 12.8 (11.0-16.0) % Plt Count 201 (160-400) X10*3/uL MPV 11.7 (9.4-12.4) fL Immature Gran % (Auto) 0.8 H (0.0-0.4) % Neut % (Auto) 72.9 (45-73) % Lymph % (Auto) 20.5 (20-40) % Park % (Auto) 5.0 (2-11) % Eos % (Auto) 0.5 (0-4) % Baso % (Auto) 0.3 (0-2) % Lymph # (Auto) 2.1 (1.2-4.9) X10*3/uL Park # (Auto) 0.5 (0.1-1.2) X10*3/uL Eos # (Auto) 0.1 (0.0-0.4) X10*3/uL Baso # (Auto) 0.0 (0.0-0.2) X10*3/uL Abs Immat Gran (auto) 0.08 H (0.00-0.03) X10*3/uL Absolute Neuts (auto) 7.5 (2.0-8.3) x10*3/uL Absolute Nucleated RBC 0.000 (0.0-0.012) X10*3/uL Nucleated RBC % (auto) 0.0 (0.0-0.2) /100WBC Sodium 141 (135-145) mmol/L Potassium 5.0 (3.3-5.1) mmol/L Chloride 108 (96-108) mmol/L Carbon Dioxide 25 (22-29) mmol/L Anion Gap 13 (12-20) BUN 22 H (9-16) mg/dL Creatinine 1.42 H (0.5-1.4) mg/dL Estim Creat Clear Calc 47.7 Estimated GFR 49 Random Glucose 155 H (60-115) mg/dL Calcium 9.4 (8.4-10.2) mg/dL Total Bilirubin 0.6 (0.0-1.0) mg/dL AST 19 (5-37) U/L ALT 19 (0-40) U/L Alkaline Phosphatase 86 (39-117) U/L Total Protein 7.3 (6.5-8.0) g/dL Albumin 4.3 (3.5-5.0) g/dL Urine Color Dark Yellow Urine Appearance Clear Urine pH 5.5 (5.0-9.0) Ur Specific [place] 1.025 (1.005-1.025) Urine Protein Trace (Neg-Trace) mg/dL Urine Glucose (UA) Negative (Negative) mg/dL Urine Ketones Trace (Negative) mg/dL Urine Blood Large (3+) H (Negative) Urine Nitrite Negative (Negative) Ur Leukocyte Esterase Trace H (Negative) Urine RBC >20 H (0-2) /HPF Urine WBC 0-5 (0-5) /HPF Ur Squamous Epith Cells 0-2 (0-2) /HPF Urine Bacteria None Seen (None Seen) Hyaline Casts 0-2 (0-2) /LPF Independent Interpretation I performed an independent interpretation of an: CT Scan Interpretation: I review interpreted the CT scan personally as right ureteral stone stone Radiology Impression Discussion of test interpretation with radiology: I have reviewed the radiologist's reading. Independent Historian Clinical information obtained from an independent historian. History obtained from or confirmed by: Spouse Prescription Management I considered prescription management with: Pain Medication Medications Administered Discontinued Medications Generic Name Dose Route Start Last Admin Trade Name Freq PRN Reason Stop Dose Admin Sodium Chloride 1,000 mls @ 999 mls/hr 01/01/24 09:30 01/01/24 11:01 Ns IVCONT 01/01/24 10:30 Infused .Q1H1M MOE Infusion Ketorolac Tromethamine 15 mg 01/01/24 09:18 01/01/24 09:56 Ketorolac Tromethamine 15 Mg/Ml Vial IVPUSH 01/01/24 09:19 15 mg ONCE ONE Administration Ondansetron HCl 4 mg 01/01/24 09:23 01/01/24 09:57 Ondansetron Hcl 4 Mg/2 Ml Vial IVPUSH 01/01/24 09:24 4 mg ONCE ONE Administration Discharge Plan Discharge Clinical Impression: Renal colic on right side Patient Disposition: Home, Self-Care Instructions: Renal Colic (ED) Additional Instructions: Follow-up with Dr. Valladares return to the emergency room if you are worse Prescriptions: New tamsulosin [Flomax] 0.4 mg capsule 0.8 mg PO BEDTIME Qty: 10 0RF oxycodone 5 mg capsule 5 mg PO Q8H PRN (Reason: pain) Qty: 12 0RF Rx Instructions: Partial Fill upon patient request. No Action oxycodone 5 mg tablet 5 mg PO Q8H PRN (Reason: pain) Qty: 9 0RF Rx Instructions: Partial Fill upon patient request. oxycodone-acetaminophen 5-325 mg tablet 1 tab PO Q4H PRN (Reason: pain (scale score 4-6)) 7 Days Qty: 14 0RF Rx Instructions: Partial Fill upon patient request. tamsulosin 0.4 mg capsule 0.4 mg PO BEDTIME 30 Days Qty: 30 1RF phenazopyridine [Pyridium] 100 mg tablet 100 mg PO TID PRN (Reason: Spasm) 4 Days Qty: 12 0RF naproxen 500 mg tablet 500 mg PO BID PRN (Reason: pain) 7 Days Qty: 14 0RF dorzolamide-timolol 22.3-6.8 mg/mL drops 1 drp ophthalmic-Right DAILY loteprednol etabonate 0.5 % drops,suspension 1 drp ophthalmic-Left MOWEFR@0900 Referrals: Petros Valladares MD [Physician] - Print Language: Georgian
[2024-01-01 09:39] LABS: Basophils Percent Auto 0.3 % (0-2); Eosinophils Absolute Auto 0.1 X10*3/uL (0.0-0.4); Eosinophils Percent Auto 0.5 % (0-4); Hematocrit 42.9 % (42.0-52.0); Hemoglobin 14.5 g/dl (14.0-18.0); Imm Gran Abs Auto 0.08 X10*3/uL (0.00-0.03); Imm Gran Pct Auto 0.8 % (0.0-0.4); Lymphocytes Absolute Auto 2.1 X10*3/uL (1.2-4.9); Lymphocytes Percent Auto 20.5 % (20-40); MANUAL DIFF FLAG NO; Mean Corpuscular HGB Conc 33.8 g/dl (31.0-36.0); Mean Corpuscular Hemoglobin 33.7 pg (27.0-33.0); Mean Corpuscular Volume 99.8 fL (80.0-98.0); Mean Platelet Volume 11.7 fL (9.4-12.4); Monocytes Absolute Auto 0.5 X10*3/uL (0.1-1.2); Neutrophils Absolute Auto 7.5 x10*3/uL (2.0-8.3); Neutrophils Percent Auto 72.9 % (45-73); Platelet Count 201 X10*3/uL (160-400); Red Cell Distribution Width 12.8 % (11.0-16.0); White Blood Count 10.3 X10*3/uL (4.8-10.8)
[2024-01-01 09:41] LABS: Appearance Urine Clear; Color Urine Dark Yellow; Glucose Urine UA Negative (Negative); Leukocyte Esterase Urine Trace (Negative); Nitrite Urine Negative (Negative); PH 5.5 (5.0-9.0); Specific Gravity - Urine 1.025 (1.005-1.025); UMIC TRIGGER UACC YES; Urine Blood Large (3+) (Negative); Urine Ketones Trace mg/dL (Negative); Urine Protein Trace mg/dL (Neg-Trace)
[2024-01-01 09:45] LABS: Bacteria Urine None Seen (None Seen); Hyaline Casts Urine 0-2 /LPF (0-2); RBC Urine >20 /HPF (0-2); Squamous Epithelial Cell Urine 0-2 /HPF (0-2); WBC Urine 0-5 /HPF (0-5)
[2024-01-01] MEDS: 0.9 % Sodium Chloride 1,000 ML 999 ML IVCONT (09:56)
[2024-01-01] MEDS: Ketorolac Tromethamine 15 MG/ML VIAL IVPUSH (09:56)
[2024-01-01] MEDS: ondansetron HCL 4 MG/2 ML VIAL IVPUSH (09:57)
[2024-01-01 10:00] LABS: Alanine Aminotransferase 19 U/L (0-40); Albumin Level 4.3 g/dL (3.5-5.0); Alkaline Phosphatase 86 U/L (39-117); Anion Gap 13 (12-20); Aspartate Amino Transferase 19 U/L (5-37); Bilirubin Total 0.6 mg/dL (0.0-1.0); Blood Urea Nitrogen 22 mg/dL (9-16); Calcium 9.4 mg/dL (8.4-10.2); Carbon Dioxide 25 mmol/L (22-29); Chloride 108 mmol/L (96-108); Creatinine Clr Calc Pharmacy 47.7; Estimated Glomerular Filt Rate 49; Glucose Random 155 mg/dL (60-115); Sodium 141 mmol/L (135-145); Total Protein 7.3 g/dL (6.5-8.0)
[2024-01-01 12:26] VITALS: BP 94/58; PULSE 74; RESP 16; TEMP 36.9; O2SAT 96
[2024-01-01 12:55] VITALS: BP 128/64; PULSE 74; RESP 16; TEMP 36.9; O2SAT 96
== END 2024-01-01 12:56 | disposition home or self-care (01) ==
PROVIDERS: Emergency Provider Emergency Medicine; PCP Internal Medicine
DX: N13.2 Hydronephrosis with renal and ureteral calculous obstruction (principal)
CPT/HCPCS: 36415; 74176; 80053; 81001; 85025; 96361; 96374; 96375; 99284; J1885; J2405

== ENCOUNTER 2024-01-06 10:51 | Outpatient (AMB) | payer OTHER, SELFPAY ==
--- NOTE | 2024-01-06 10:52 | MHC.OFFVIS ---
Intake Visit Reasons: s/p ER visit- possible ESWL discussion Intake Note: Patient is Present for Telephone [place] [facility] [place]Discussion on possible ESWL Urology Med: Tamsulosin Antibiotic Allergy: None Blood Thinner:none Patient recently was [place] [facility] [place] Scan showed 3mm stone no infection at time Windows Phone Developer Required: No Accompanied by: Self / Same As Patient Allergies No Known Allergies Allergy (Verified 01/06/24 10:54) HPI Comments Details: Alok is a pleasant male. He is a patient of Dr. Lizarraga. He is seen for the following urologic conditions - nephrolithiasis Telemedicine Evaluation 15 min Consultation [employer] [place] Video attempted Had episode of right flank pain CT scan shows 3 mm stone proximal right ureter Minimal pain since ER presentation Has been on tamsulosin Follow-up in January with imaging to ensure stone passage Nephrolithiasis Hospital presentation April 2023 Underwent stent placement followed by ESWL 7 mm proximal left ureteric stone PFSH Medical History Renal calculi Glaucoma Surgical History Hx of cystoscopy Hx of rotator cuff surgery History of back surgery Hx of bilateral cataract extraction Social History Household Members: Spouse Housing: House Do you presently have visiting nurse or other home services: No Alcohol intake: former Patient Tobacco Use Status: Former Tobacco user service: No Review of Systems Const All systems reviewed & are unremarkable except as noted in HPI and below Reports no additional complaints Resp Reports no additional complaints GI Reports no additional complaints Reports as per HPI Musc Reports no additional complaints Physical Exam Telemedicine evaluation Appropriate responses Regular breathing rate and rhythm HEENT Head: Yes normal to inspection Ears: hearing grossly normal bilaterally Eyes General: appearance normal, both eyes and all related structures Neck Neck: Yes normal visual inspection Chest Chest palpation & inspection: normal inspection of the chest Resp Effort & Inspection: normal respiratory effort and able to speak in complete sentences Telehealth Telehealth Telehealth Platform: [employer] Location of provider rendering services: practice address Location of patient: address on file Patient Identification confirmed using: Name, : Yes Telehealth method: video Patient verbally consented to treatment: Yes Patient verbally consented to billing insurance company: Yes Patient informed of any privacy concerns related to visit: Yes Minutes spent on Phone/Video with Pt.: 15 Assessment & Plan Assessment & Plan (1) Ureteric calculus: Code(s): N20.1 - Calculus of ureter Category: Medical Plan Right ureteric calculus Patient Instructions: Imaging studies, laboratory and physical exam results were discussed and reviewed in detail. No major barriers to patient understanding were identified. An opportunity to ask questions regarding the treatment plan was provided. All questions were answered. The patient expressed understanding and agreement with the above treatment plan. The patient is aware they should contact our office by phone for worsening of their current condition or the appearance of new urologic symptoms. Compliance is encouraged with any medications and followup testing that is ordered. It is a privilege to participate in the urologic care of your patient. If you have any questions or concerns regarding treatment for the above conditions, or other urologic issues, please do not hesitate to contact me. The office telephone contact is [phone]. This note is constructed using voice recognition software. While every effort has been made to ensure accuracy supervisor audit clerks errors may have been included. Yours sincerely, Dr Petros Valladares MD, COURTNEY [facility] - Urology Providers of Expert, Compassionate Care for the Genitourinary System Coding Level of Care Code Tele Est Pt Level 3 (88014) Diagnoses Ureteric calculus N20.1
== END 2024-01-06 11:44 | disposition home or self-care (01) ==
LOC: HO.HUSH 10:51
PROVIDERS: PCP Internal Medicine; Visit Provider Urology
DX: N20.1 Calculus of ureter (principal)
CPT/HCPCS: 99213

== ENCOUNTER → 2024-01-06 10:51 | Outpatient (BNVA) | payer OTHER, SELFPAY | PROVIDERS: PCP Internal Medicine; Visit Provider Urology ==

== ENCOUNTER 2024-02-04 08:47 | Outpatient (REF) | payer OTHER, SELFPAY ==
--- NOTE | ~2024-02-04 | US_ITS ---
EXAMINATION: US RETROPERITONEAL LIMITED (RENAL ONLY) CLINICAL INFORMATION: Calculus in the ureter. COMPARISON: CT abdomen and pelvis 01/01/2024. Renal ultrasound 06/17/2023. X-ray KUB 04/21/2023. TECHNIQUE: Real-time imaging of the kidneys. FINDINGS: RIGHT KIDNEY: 11.4 x 5.2 x 5.9 cm (SAG x AP x TRV). The kidney is normal in size, contour, and echogenicity. Renal cortical thickness is normal. No renal calculi or hydronephrosis. Septated cyst lower pole right kidney 1.7 cm. These are commonly benign, no follow-up imaging is indicated. LEFT KIDNEY: 11.4 x 5.6 x 4.6 cm (SAG x AP x TRV). The kidney is normal in size, contour, and echogenicity. Renal cortical thickness is normal. No calculi or focal parenchymal lesions. No hydronephrosis. US/US renal BI IMPRESSION: 1. No ultrasound evidence of kidney stones or hydronephrosis. 2. Septated cyst lower pole right kidney 1.7 cm, this is commonly benign, no follow-up imaging is indicated. Electronically signed by: Nadira White MD 03/19/2024 07:41 PM MAX TANNER
== END 2024-02-04 08:48 | disposition home or self-care (01) ==
LOC: HO.US 08:47
PROVIDERS: PCP Internal Medicine; Visit Provider Urology
DX: N20.1 Calculus of ureter (principal)
CPT/HCPCS: 76775

== ENCOUNTER 2024-04-07 10:54 | Outpatient (AMB) | payer OTHER, SELFPAY ==
--- NOTE | 2024-04-07 11:01 | MHC.OFFVIS ---
Intake Visit Reasons: 6m/US Intake Note: Patient is Present for 6M/US Urology Med: Tamsulosin,NAPROXEN,PYRIDIUM Antibiotic Allergy: None Blood Thinner:none Auto Top Mechanic Required: No Accompanied by: Self / Same As Patient Allergies No Known Allergies Allergy (Verified 04/07/24 11:03) HPI Comments Details: Alok is a pleasant male. He is a patient of Dr. Lizarraga. He is seen for the following urologic conditions - nephrolithiasis No stone seen on follow-up ultrasound Advice given to increase fluid and add lemon Twelve month follow-up renal ultrasound Nephrolithiasis Hospital presentation April 2023 Underwent stent placement followed by ESWL 7 mm proximal left ureteric stone Imaging - 04/25 renal ultrasound no stones PFSH Medical History Renal calculi Glaucoma Surgical History Hx of cystoscopy Hx of rotator cuff surgery History of back surgery Hx of bilateral cataract extraction Social History Household Members: Spouse Housing: House Do you presently have visiting nurse or other home services: No Alcohol intake: former Patient Tobacco Use Status: Former Tobacco user service: No Review of Systems Const Denies chills and Denies fever(s) Card Reports no additional complaints and Denies syncope Resp Denies cough GI Denies abdominal pain and Denies heartburn Reports as per HPI and Denies change in libido Neuro Denies syncope Psych Denies change in libido Endo Denies change in libido Physical Exam Const General: cooperative, healthy appearing, comfortable and no acute distress Orientation/consciousness: patient oriented x3 HEENT Face and sinus: Yes normal facial exam Mouth: moist mucous membranes Neck Neck: Yes normal visual inspection, Yes full ROM and Yes trachea midline Chest Chest palpation & inspection: normal inspection of the chest Resp Effort & Inspection: normal respiratory effort, able to speak in complete sentences and no respiratory distress GI Inspection: Yes normal to inspection Back/Spine/Pelvis Cervical Spine: normal cervical lordosis Thoracic/Lumbar Spine: thoracic and lumbar spine normal to inspection Skin General skin exam: no rashes or lesions noted Neuro General: patient oriented x3, gait normal, tone normal and moves all extremities Extrem General: Yes normal to inspection and Yes capillary refill normal Assessment & Plan Assessment & Plan (1) Left ureteral calculus: Code(s): N20.1 - Calculus of ureter Category: Medical Plan Twelve month follow-up renal ultrasound Orders: Orders US renal BI 12 Months N20.1 - Calculus of ureter Patient Instructions: Imaging studies, laboratory and physical exam results were discussed and reviewed in detail. No major barriers to patient understanding were identified. An opportunity to ask questions regarding the treatment plan was provided. All questions were answered. The patient expressed understanding and agreement with the above treatment plan. The patient is aware they should contact our office by phone for worsening of their current condition or the appearance of new urologic symptoms. Compliance is encouraged with any medications and followup testing that is ordered. It is a privilege to participate in the urologic care of your patient. If you have any questions or concerns regarding treatment for the above conditions, or other urologic issues, please do not hesitate to contact me. The office telephone contact is [phone]. This note is constructed using voice recognition software. While every effort has been made to ensure accuracy academic records specialist errors may have been included. Yours sincerely, Dr Petros Valladares MD, COURTNEY [facility] - Urology Providers of Expert, Compassionate Care for the Genitourinary System Coding Level of Care Code Est Pt Level 3 (29186) Diagnoses Left ureteral calculus N20.1
--- OUTSIDE RECORDS SUMMARY | 2024-04-12 07:45 | XMS_ITS | Data Portability ---
Author Organization [facility] Surgeons [facility], [facility] Address [address] [place] [address] Care Team Providers Care Evaporator Helper Name Role Phone AARON REBOLLEDO Primary Care Provider [phone] Assessment No assessment recorded. Plan of Treatment Reminders Order Date Submit Date Provider Last Modified By Organization Details Last Modified Time Details Appointments None recorded. Lab None recorded. Referral None recorded. Procedures None recorded. Surgeries None recorded. Imaging XR, shoulder, 2 or more view - L shoulder 4 view rm 216 2023 024 cstamand [facility], [address] [facility], [address], [place], [address], 12:35:45 Medication Orders None recorded. Patient TargetsNo targets recorded. Patient InstructionsNo instructions recorded. Reason for Referral None Reported. Results Created Date Observation Date Name Description Value Unit Range Abnormal Flag Note LastModifiedBy Organization Detail LastModifiedTime 03/06/2003/06/2024 XR, shoul cosmo, 2 or more view http:/ [email or web address] ?Encry pted=s hAaTro YD8dLq bEUv6g %2BXZw aYqtaq 0bqfl% 2Fg9IQ a4ajBk vP9nXo QUaueC m3YtLR FvZlgJ JJ8mAn HZtai3 2c3535 AC0Kqa HiGWKe vKiQtr MwF INTERFACE [facility] [address], [place], [address], 03/06/2024 15:51:15 03/06/20 24 03/06/2024 XR, shoul cosmo, 2 or more view [email or web address] ?Encry pted=s Vaibhav YD8dLq bEUv6g %2BXZw aYqtaq 0bqfl% 2Fg9IQ a4ajBk vP9nXo QUaueC m3YtLR FvZlgJ JJ8mAn HZtai3 8p3514 AC0Kqa HiGWKe vKiQtr MwF INTERFACE [facility] [address], [place], [address], 03/06/2024 15:51:17 Result Notes None recorded. Problems Name Problem SNOMED Code Status Onset Date Resolution Date Notes Provider Name and Address Organization Details Recorded Time No complaints [id number] Active Status : 'A'; Not Available [facility] 09:16:14 Problem Notes None recorded. Procedures Surgical History Date Name Laterality Status Provider Name and Address Organization Details Recorded Time Sports Shoulder completed Nola Bolton MD [address], [place], [address], [facility] 03/06/2024 16:26:57 Imaging Results Imaging Date Name Status LastModified by Organiz ation Details LastModified Time 03/06/2024 XR, shoulder, 2 or more view completed [facility] [address], [place], [address], 03/06/2024 15:51:15 03/06/2024 XR, shoulder, 2 or more view completed [facility] [address], [place], [address], 03/06/2024 15:51:17 Procedure Notes None recorded. Medical Equipment None Reported. Medications Name Sig Start Date Stop Date Status Note LastModified by Organization Details LastModified Time lisinopril 10 mg tablet 1 tablet every day by oral route. 2023 active Not Available Not Available Not Avai lable Cosopt Cosopt 2-0.5% Solution 2022 active Statu s: 'Curr ent'; Not Available Not Available Not Available oxycodone HCl-oxycodon e-ASA as directed 1 TABLET Q 4 HOURS PRN PAIN DO NOT DRIVE WHILE TAKING THIS MEDICATION 2022 active Statu s: 'Curr ent'; Not Available Not Available Not Available Vitals Date Recorded Body height Body mass index (BMI) Body weight Provider Name and Address Organization Details Last Updated DateTime 03/06/2024 175.26 cm 24.4 kg/m2 18994.74 g ORIANA BRADEN [facility] 03/06/2024 15:40:01 Social History Question Answer Notes LastModified by Organizat ion Details LastModified Time Tobacco Smoking Status Former Smoker ORIANA keys [facility] 03/06/2024 15:39:47 How Many Times Per Week Do You Consume Alcohol? Less Than 1 Time Per Week Information not available 03/06/2024 Do You Or Have You Ever Used E-cigarettes Or Vape? Never Used Electronic Cigarettes Information not available 03/06/2024 When Did You Quit Smoking? 16+yearssincel davidmalinaette Information not available 03/06/2024 What Is Your Relationship Status? Information not available 03/06/2024 Do You Use Any Illicit Or Recreational Drugs? No Information not available 03/06/2024 Do You Or Have You Ever Used Any Other Forms Of Tobacco Or Nicotine? No Information not available 03/06/2024 Sex: Unknown Functional Status None recorded. Mental Status None recorded. Family History Nothing Reported. Medical History Condition Response Allergies/Hayfever N Coronary Artery Disease N Anxiety/Depression N Breathing or lung disorders N Emphysema N Nerve Disorders N Thyroid Problems N COPD N Pacemaker N Anemia N Kidney/Bladder Problems N Vascular Disease N Heart Trouble N Heart Attack ([place]) N Gastrointestinal Disease N Cholesterol N Diabetes N Autoimmune disease N Bleeding Disorder N Inflammatory Joint disease N Orthotics N Arthritis N Seizures/Epilepsy N Blood Clot N AIDS/HIV N Congestive Heart Failure (CHF) N Acid Reflux (GERD) N Cancer N Stroke N Asthma N Circulation Problems N Peripheral Vascular Disease N Sleep Apnea N Hepatitis N Heart Disease N Rheumatoid Arthritis N Arrhythmia N Pulmonary Embolism N Headaches N Fibromyalgia N Hypertension N Osteoporosis N Past Encounters Encounter ID Performer Location Encounter Start Date Encounter Closed Date Diagnosis/Indication Diagnosis SNOMED-CT Code Diagnosis ICD10 Code [id number] MD Megha Sargent 2nd floor [address] [place] [place] [address] 03/06/2024 15:13:39 04/03/2024 12:35:45 Chronic pain of left upper limb [id number] 4239150 M25.512 G89.29 Health Concerns Section Related Observation LastModified by Organization Detai ls LastModified Time None Recorded Concern Status LastModified by Organization Details LastModified Time None Recorded Advance Directives Directive None Recorded Payers None recorded. 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 Right shoulder continues to do well. Presents to clinic today for new evaluation of left shoulder complaints. This has come on over the past 4 to 6 weeks. No specific injury that he can recall. Most bothersome with sleeping at night. Pain is felt over the lateral brachium, feels like an achy fatigued sensation. Rare crepitus. Does not feel he is lost any range of motion or strength. PMH: Glaucoma PSH: Lumbar surgery, cataract surgery, right rotator cuff repair December 2022 Meds: Eyedrops Allergies: No known drug allergies Social Hx: Works in sales. , with children. Denies tobacco or alcohol use. Family Hx: noncontributory ROS: Negative x12 except as noted above in the HPI Past family, medical, social history and review of systems have been reviewed and updated on the medical history sheet saved to the patient's chart. A 12-point review of systems is negative x12 except as noted above and/or on the medical history sheet. Examination: Very pleasant 74-year-old gentleman in no acute distress. 5 feet 9 inches, 165 pounds. On exam of the left upper extremity, skin over the shoulder is intact. No effusion, no gross atrophy. No point tenderness to palpation. Active and passive forward elevation 170, external rotation 70, internal rotation L3. No real pain with end range of motion. 5/5 strength with scaption, IR, ER. Minor discomfort with empty can testing. Negative Yergason's. Sensation intact in an axillary distribution. Fires EPL, FPL and intrinsics. Hand is warm and well-perfused. Imaginv of the Left shoulder ordered and obtained at [facility] today were reviewed during the visit. These demonstrate good preservation of glenohumeral and AC joint spaces. No proximal migration humeral head. Humeral head centered on axillary view. No dystrophic calcium deposition. Type II acromion. CT scan of the left shoulder performed at [facility] 02/25/2024 independently reviewed by me on the [facility] imaging system during the visit today. These demonstrate good preservation of glenohumeral and AC joint spaces. Some calcification of the posterior inferior labrum. Small calcification within the posterior cuff insertion. No proximal migration humeral head. No evidence for full-thickness cuff tear. Mild AC arthrosis. Type II acromion. Impression: 74-year-old ljejx-eopx-wpwzjbpw gentleman working in sales with 4 to 6 weeks acute onset left shoulder pain. History and exam most consistent with impingement; Lower suspicion for any significant rotator cuff tear. Symptoms fairly mild at this point, really only manifesting at nighttime with sleeping. Plan: Will go forward with a cortisone injection today. For occasional aches and pains, the patient can take yavv-ypi-zefeeqy medication such as Tylenol or anti-inflammatories as needed; risks and benefits of medication discussed. Should call with more persistent pain. We will leave follow up open ended at this point. However should symptoms worsen or fail to improve to the patient's satisfaction, he is encouraged to give the office a call to be seen back for further evaluation and management. Frequency speech recognition medical transcription supervisor software was used to create portions of this document. An attempt at proofreading has been made to minimize errors. Please call for corrections. Nola Bolton MD [facility] [address] [address], [place], [address], [facility] 03/06/2024 17:19:26
--- OUTSIDE RECORDS SUMMARY | 2024-04-12 07:46 | XMS_ITS | Continuity of Care Document ---
Author Organization [facility] Surgeons [facility], [facility] 2nd floor Address [address] [place] [address] Care Team Providers Care Scissors Grinder Name Role Phone AARON REBOLLEDO Primary Care Provider Assessment No assessment recorded. Plan of Treatment Reminders Order Date Submit Date Provider Last Modified By Organization Details Last Modified Time Details Appointments None recorded. Lab None recorded. Referral None recorded. Procedures None recorded. Surgeries None recorded. Imaging XR, shoulder, 2 or more view - L shoulder 4 view rm 216 2023 024 cstamand [facility], [address] [facility] [address], [address], [place], [address], 12:35:45 Medication Orders None recorded. Patient TargetsNo targets recorded. Patient InstructionsNo instructions recorded. Reason for Referral None Reported. Results Created Date Observation Date Name Description Value Unit Range Abnormal Flag Note LastModifiedBy Organization Detail LastModifiedTime 03/06/20 24 03/06/2024 XR, shoul cosmo, 2 or more view http:/ [email or web address] ?Encry pted=s hAaTro YD8dLq bEUv6g %2BXZw aYqtaq 0bqfl% 2Fg9IQ a4ajBk vP9nXo QUaueC m3YtLR FvZlgJ JJ8mAn HZtai3 [id number] AC0Kqa HiGWKe vKiQtr MwF INTERFACE [facility] [address], [place], [address], 03/06/2024 15:51:15 03/06/20 24 03/06/2024 XR, shoul cosmo, 2 or more view [email or web address] ?Encry pted=s Vaibhav YD8dLq bEUv6g %2BXZw aYqtaq 0bqfl% 2Fg9IQ a4ajBk vP9nXo QUaueC m3YtLR FvZlgJ JJ8mAn HZtai3 0s0709 AC0Kqa HiGWKe vKiQtr MwF INTERFACE [facility] [address], [place], [address], 03/06/2024 15:51:17 Result Notes None recorded. Problems Name Problem SNOMED Code Status Onset Date Resolution Date Notes Provider Name and Address Organization Details Recorded Time No complaints [id number] Active Status : 'A'; Not Available [facility] 09:16:14 Problem Notes None recorded. Procedures Surgical History Date Name Laterality Status Provider Name and Address Organization Details Recorded Time Sports Shoulder completed Nola Bolton MD [address] [facility] [address], [place], [address], [facility] 03/06/2024 16:26:57 Imaging Results None recorded. Procedure Notes None recorded. Medical Equipment None Reported. Medications Name Sig Start Date Stop Date Status Note LastModified by Organization Details LastModified Time lisinopril 10 mg tablet 1 tablet every day by oral route. 2023 active Not Available Not Available Not Tiny zavala Cosopt Cosopt 2-0.5% Solution 2022 active Statu [...] Updated DateTime 03/06/2024 175.26 cm 24.4 kg/m2 87278.74 g ORIANA BRADEN [facility] 03/06/2024 15:40:01 Social History Question Answer Notes LastModified by Organizat ion Details LastModified Time Tobacco Smoking Status Former Smoker ORIANA keys [place] [facility] 03/06/2024 15:39:47 How Many Times Per Week Do You Consume Alcohol? Less Than 1 Time Per Week Information not available 03/06/2024 Do You Or Have You Ever Used E-cigarettes Or Vape? Never Used Electronic Cigarettes Information not available 03/06/2024 When Did You Quit Smoking? 16+yearssincel shirley Information not available 03/06/2024 What Is Your [...] Response Allergies/Hayfever N Coronary Artery Disease N Breathing or lung disorders N Anxiety/Depression N Emphysema N Nerve Disorders N Thyroid Problems N COPD N Pacemaker N Kidney/Bladder Problems N Anemia N Vascular Disease N Heart Trouble N Heart Attack (MD) N Gastrointestinal Disease N Cholesterol N Diabetes N Autoimmune disease N Inflammatory Joint disease N Bleeding Disorder N Orthotics N Seizures/Epilepsy N Arthritis N Blood Clot N AIDS/HIV N Congestive Heart Failure (CHF) N Acid Reflux (GERD) N Cancer N Stroke N Asthma N Circulation Problems N Peripheral Vascular Disease N Sleep Apnea N Hepatitis N Heart Disease N Rheumatoid Arthritis N Pulmonary Embolism N Arrhythmia N Headaches N Fibromyalgia N Hypertension N Osteoporosis N Past Encounters Encounter ID Performer Location Encounter Start Date Encounter Closed Date Diagnosis/Indication Diagnosis SNOMED-CT Code Diagnosis ICD10 Code [id number] MD Megha Sargent 2nd floor [address] [address] 03/06/2024 15:13:39 04/03/2024 12:35:45 Chronic pain of left upper limb [id number] M25.512 G89.29 Health Concerns Section Related Observation LastModified by Organization Detai ls LastModified Time None Recorded Concern Status LastModified by Organization Details LastModified Time None Recorded Payers None recorded. 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 Right shoulder continues to do well. [...] the Left shoulder ordered and obtained at [facility] today were reviewed during the visit. These demonstrate good preservation of glenohumeral and AC joint spaces. No proximal migration humeral head. Humeral head centered on axillary view. No dystrophic calcium deposition. Type II acromion. CT scan of the left shoulder performed at [facility] 02/25/2024 independently reviewed by me on the [facility] imaging system during the visit today. These demonstrate good preservation of glenohumeral and AC joint spaces. Some calcification of the posterior inferior labrum. Small calcification within the posterior cuff insertion. No proximal migration humeral head. No evidence for full-thickness cuff tear. Mild AC arthrosis. Type II acromion. 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 History and exam most consistent with impingement; Lower suspicion for any significant rotator cuff tear. Symptoms fairly mild at this point, really only manifesting at nighttime with sleeping. Plan: Will go forward with a cortisone injection today. For occasional aches and pains, the patient can take tlme-trg-bpqhhkr medication such as Tylenol or anti-inflammatories as needed; risks and benefits of medication discussed. Should call with more persistent pain. We will leave follow up open ended at this point. However should symptoms worsen or fail to improve to the patient's satisfaction, he is encouraged to give the office a call to be seen back for further evaluation and management. Alexis Bittar speech recognition concrete worker software was used to create portions of this document. An attempt at proofreading has been made to minimize errors. Please call for corrections. Nola Bolton MD [facility] [address] [facility], [place], [address], [facility] 03/06/2024 17:19:26
== END 2024-04-07 11:40 | disposition home or self-care (01) ==
PROVIDERS: PCP Internal Medicine; Visit Provider Urology
DX: N20.1 Calculus of ureter (principal)
CPT/HCPCS: 99213

== ENCOUNTER → 2024-04-07 10:54 | Outpatient (BNVA) | payer OTHER, SELFPAY | PROVIDERS: PCP Internal Medicine; Visit Provider Urology ==

== ENCOUNTER 2024-04-18 17:02 | Emergency (ER) | payer OTHER, SELFPAY ==
--- NOTE | ~2024-04-18 | CT_ITS ---
EXAMINATION: CT ABDOMEN AND PELVIS WITHOUT CONTRAST CLINICAL INFORMATION: Abdominal pain. COMPARISON: January 01, 2024 TECHNIQUE: Multidetector volumetric imaging was performed from the superior aspect of the liver through the pubic symphysis. Sagittal and coronal reformatted images were obtained on the technologist's workstation. This CT examination was performed using dose optimization techniques as appropriate, variously including the following: *Automated exposure control *Adjustment of mA and/or kV according to patient size (this includes techniques or standardized protocols for targeted exams where dose is matched to indication/reason for exam; i.e. extremities or head) *Use of iterative reconstruction technique DLP: 496 mGy-cm FINDINGS: LUNG BASES: There is scarring at both lung bases. LIVER, GALLBLADDER, AND BILIARY TREE: Numerous hepatic cysts are again seen measuring up to 3.4 cm. There is no intrahepatic biliary duct dilatation. The gallbladder is unremarkable with no evidence of radiopaque gallstones, gallbladder wall thickening, or obvious pericholecystic inflammatory changes. PANCREAS: Unremarkable. SPLEEN: Unremarkable. ADRENAL GLANDS: There is mild bilateral adrenal gland thickening and nodularity. KIDNEYS AND URETERS: The kidneys are normal in size, shape, and attenuation. There are adjacent 4 to 5 mm elongated calculi lower pole left kidney. No perinephric stranding. There is a stable 1.8 cm cyst mid to lower pole right kidney. BLADDER: Unremarkable. GASTROINTESTINAL TRACT: There are diverticula of the descending and proximal sigmoid colon without evidence for diverticulitis. The appendix is visualized and is within normal limits. ABDOMINAL WALL: There is a left inguinal hernia containing fat and a small portion of bowel without bowel obstruction. LYMPH NODES: Normal. VASCULAR: There is mild atherosclerotic plaque of the visualized aorta. PELVIC VISCERA: Stable prostate gland hypertrophy. OSSEOUS STRUCTURES: There is diffuse thoracolumbar degenerative change. CT/CT abdomen pelvis wo IV con IMPRESSION: 1. Diverticulosis without evidence of diverticulitis. 2. Left inguinal hernia containing fat and a small portion of bowel without bowel obstruction. 3. Nonobstructing left renal calculi. 4. Hepatic and right renal cysts. Fleischner guidelines were followed. Electronically signed by: Santos Sainz MD 04/19/2024 01:24 AM [facility] [place]
[2024-04-18 17:10] VITALS: BP 179/96; PULSE 79; RESP 19; TEMP 36.4; O2SAT 98; BMI 24.4
--- NOTE | 2024-04-18 17:15 | ED_ITS ---
HPI - General Adult General Chief complaint: Abdominal Pain Stated complaint: lwr right abd pain Time Seen by Provider: 04/18/24 21:54 Source: patient Mode of arrival: ambulatory Limitations: no limitations History of Present Illness ED Provider: HPI narrative: Patient's history of kidney stone was seen here on 12/31 with right proximal ureteric stone of 3 mm comes here as he noticed pain in the right lower abdomen radiating to the right flank since yesterday evening you with nausea while way in the waiting area patient has urinated and passed small stone and now is pain- free patient has had ultrasound on 02/03 which was negative for stone or hydronephrosis Related Data Home Medications ?Medication ?Instructions ?Recorded ?Confirmed dorzolamide 22.3 mg-timolol 6.8 1 drp ophthalmic-Right DAILY 04/04/23 08/06/23 mg/mL eye drops loteprednol etabonate 0.5 % eye 1 drp ophthalmic-Left MOWEFR@0900 04/04/23 08/06/23 drops,suspension Previous Rx's ?Medication ?Instructions ?Recorded oxycodone 5 mg tablet 5 mg PO Q8H PRN pain #9 tabs 04/01/23 naproxen 500 mg tablet 500 mg PO BID PRN pain 7 days #14 04/21/23 tabs oxycodone-acetaminophen 5 mg-325 1 tab PO Q4H PRN pain (scale score 04/21/23 mg tablet 4-6) 7 days #14 tabs phenazopyridine 100 mg tablet 100 mg PO TID PRN Spasm 4 days #12 04/21/23 (Pyridium) tabs tamsulosin 0.4 mg capsule 0.4 mg PO BEDTIME 30 days #30 caps 04/21/23 oxycodone 5 mg capsule 5 mg PO Q8H PRN pain #12 caps 01/01/24 tamsulosin 0.4 mg capsule (Flomax) 0.8 mg (2 x 0.4 mg) PO BEDTIME #10 01/01/24 caps Allergies Allergy/AdvReac Type Severity Reaction Status Date / Time No Known Allergies Allergy Verified 04/18/24 17:11 Review of Systems 2 Review of Systems: Yes all other systems are reviewed and are negative PMFSH Past Medical History Medical History Renal calculi Glaucoma Surgical History Hx of cystoscopy Hx of rotator cuff surgery History of back surgery Hx of bilateral cataract extraction Social History Social History Household Members: Spouse Housing: House Do you presently have visiting nurse or other home services: No Alcohol intake: former Patient Tobacco Use Status: Former Tobacco user Use of substances other than those prescribed or required for medical reasons: No Advance Directives: No Advance Directives Information Provided: No Do you have a plan to hurt others: No Plan service: No Physical Exam ED Vital Signs: Vital Signs - 24 hr 04/18/24 17:10 04/18/24 22:11 04/18/24 23:06 Temperature 97.6 F 97.8 F Pulse Rate 79 78 Respiratory Rate 19 18 Blood Pressure 179/96 H 166/104 H 163/89 H Pulse Oximetry 98 97 Oxygen Delivery Method Room Air Room Air BMI result Body Mass Index 24.4 Appearance: Alert. Oriented X3. No acute distress. Eyes: No pallor or icterus ENT: Pharynx normal. Oral Mucosa moist Neck: Normal inspection. Neck supple. CVS: Normal heart rate and rhythm. Pulses normal. Respiratory: No respiratory distress. Equal air entry bilateral, no wheezing/rales/rhonchi Abdomen: Soft and nontender. Bowel sounds are present, no mass palpable, no CVA tenderness Skin: Skin warm and dry. Normal skin color. Normal skin turgor. Extremities: No lower extremity edema. No calf tenderness Neuro: Oriented X 3. No motor deficit. Course Course Course Narrative: RME, this is a rapid medical exam performed by Eloy Fleming please refer to primary provider for complete H&P- 74-year-old male presents for evaluation of right lower abdominal pain. He does have a history of kidney stones but is unsure if this feels similar. He has some nausea. Plan for labs, urinalysis will defer advanced imaging at this time pending workup and physical examination Medications Administered Discontinued Medications Generic Name Dose Route Start Last Admin Trade Name Freq PRN Reason Stop Dose Admin Amlodipine Besylate 5 mg 04/18/24 22:32 04/18/24 23:06 Amlodipine Besylate 5 Mg Tablet PO 04/18/24 22:33 5 mg ONCE ONE Administration Protocol Medical Decision Making Lab Data MDM Lab Attestation statement: I reviewed the patient's lab results. 04/18/24 17:43 04/18/24 17:43 Labs: Lab Results 04/18/24 Range/Units 17:43 WBC 7.1 (4.8-10.8) X10*3/uL RBC 4.12 L (4.60-5.80) X10*6/uL Hgb 13.4 L (14.0-18.0) g/dl Hct 40.8 L (42.0-52.0) % MCV 99.0 H (80.0-98.0) fL MCH 32.5 (27.0-33.0) pg MCHC 32.8 (31.0-36.0) g/dl RDW 12.8 (11.0-16.0) % Plt Count 228 (160-400) X10*3/uL MPV 11.3 (9.4-12.4) fL Immature Gran % (Auto) 0.3 (0.0-0.4) % Neut % (Auto) 62.1 (45-73) % Lymph % (Auto) 26.9 (20-40) % [place] % (Auto) 8.5 (2-11) % Eos % (Auto) 1.8 (0-4) % Baso % (Auto) 0.4 (0-2) % Lymph # (Auto) 1.9 (1.2-4.9) X10*3/uL [place] # (Auto) 0.6 (0.1-1.2) X10*3/uL Eos # (Auto) 0.1 (0.0-0.4) X10*3/uL Baso # (Auto) 0.0 (0.0-0.2) X10*3/uL Abs Immat Gran (auto) 0.02 (0.00-0.03) X10*3/uL Absolute Neuts (auto) 4.4 (2.0-8.3) x10*3/uL Absolute Nucleated RBC 0.000 (0.0-0.012) X10*3/uL Nucleated RBC % (auto) 0.0 (0.0-0.2) /100WBC Sodium 140 (135-145) mmol/L Potassium 4.2 (3.3-5.1) mmol/L Chloride 106 (96-108) mmol/L Carbon Dioxide 29 (22-29) mmol/L Anion Gap 9 L (12-20) BUN 24 H (9-16) mg/dL Creatinine 1.11 (0.5-1.4) mg/dL Estim Creat Clear Calc 60.1 Estimated GFR > 60 Random Glucose 101 (60-115) mg/dL Calcium 9.4 (8.4-10.2) mg/dL Total Bilirubin 0.5 (0.0-1.0) mg/dL Direct Bilirubin 0.2 (0.0-0.5) mg/dL AST 23 (5-37) U/L ALT 20 (0-40) U/L Alkaline Phosphatase 99 (39-117) U/L Total Protein 7.8 (6.5-8.0) g/dL Albumin 4.2 (3.5-5.0) g/dL Lipase 24 (8-78) U/L Urine Color Yellow Urine Appearance Clear Urine pH 5.5 (5.0-9.0) Ur Specific [place] 1.020 (1.005-1.025) Urine Protein Trace (Neg-Trace) mg/dL Urine Glucose (UA) Negative (Negative) mg/dL Urine Ketones Negative (Negative) mg/dL Urine Blood Small (1+) H (Negative) Urine Nitrite Negative (Negative) Ur Leukocyte Esterase Negative (Negative) Urine RBC 0-2 (0-2) /HPF Urine WBC 0-5 (0-5) /HPF Ur Squamous Epith Cells 0-2 (0-2) /HPF Urine Bacteria None Seen (None Seen) Hyaline Casts 0-2 (0-2) /LPF Influenza Type A (PCR) NEGATIVE (Negative) Influenza Type B (PCR) NEGATIVE (Negative) RSV RNA Qual (PCR) NEGATIVE (Negative) SARS-CoV-2 RNA (RT-PCR) NEGATIVE (Negative) Discharge Plan Discharge Clinical Impression: Kidney stone on right side Patient Disposition: Home, Self-Care Instructions: Kidney Stones (ED) Additional Instructions: Likely you passed a small kidney stone at this time there is no evidence of obstructive kidney stone Drink plenty of fluid Follow up with your PCP Prescriptions: No Action oxycodone 5 mg tablet 5 mg PO Q8H PRN (Reason: pain) Qty: 9 0RF Rx Instructions: Partial Fill upon patient request. oxycodone-acetaminophen 5-325 mg tablet 1 tab PO Q4H PRN (Reason: pain (scale score 4-6)) 7 Days Qty: 14 0RF Rx Instructions: Partial Fill upon patient request. tamsulosin 0.4 mg capsule 0.4 mg PO BEDTIME 30 Days Qty: 30 1RF phenazopyridine [Pyridium] 100 mg tablet 100 mg PO TID PRN (Reason: Spasm) 4 Days Qty: 12 0RF naproxen 500 mg tablet 500 mg PO BID PRN (Reason: pain) 7 Days Qty: 14 0RF tamsulosin [Flomax] 0.4 mg capsule 0.8 mg PO BEDTIME Qty: 10 0RF oxycodone 5 mg capsule 5 mg PO Q8H PRN (Reason: pain) Qty: 12 0RF Rx Instructions: Partial Fill upon patient request. dorzolamide-timolol 22.3-6.8 mg/mL drops 1 drp ophthalmic-Right DAILY loteprednol etabonate 0.5 % drops,suspension 1 drp ophthalmic-Left MOWEFR@0900 Interventions: ED Discharge Assessment Last Done: 04/19/24 01:53 Discharge Date/Time: 04/19/24 01:54 Print Language: Thai
--- OUTSIDE RECORDS SUMMARY | 2024-04-18 17:35 | XMS_ITS | Data Portability ---
Author Organization [facility], [facility] Address [address] [place] [address] Care Team Providers Care Private Household Worker Name Role Phone AARON REBOLLEDO Primary Care Provider Assessment No assessment recorded. Plan of Treatment Reminders Order Date Submit Date Provider Last Modified By Organization Details Last Modified Time Details Appointments None recorded. Lab None recorded. Referral None recorded. Procedures None recorded. Surgeries None recorded. Imaging XR, shoulder, 2 or more view - L shoulder 4 view rm 216 2023 024 [email or web address] [employer] Office, [address] [facility] [address], [address], [place], [address], 12:35:45 Medication Orders None recorded. Patient TargetsNo targets recorded. Patient InstructionsNo instructions recorded. Reason for Referral None Reported. Results Created Date Observation Date Name Description Value Unit Range Abnormal Flag Note LastModifiedBy Organization Detail LastModifiedTime 03/06/2003/06/2024 XR, shoul cosmo, 2 or more view [email or web address] ?Encry pted=s hAaTro YD8dLq bEUv6g %2BXZw aYqtaq 0bqfl% 2Fg9IQ a4ajBk vP9nXo QUaueC m3YtLR FvZlgJ JJ8mAn HZtai3 [id number] AC0Kqa HiGWKe vKiQtr MwF INTERFACE [employer]nie Office [address], [place], [address], 03/06/2024 15:51:15 03/06/20 24 03/06/2024 XR, shoul cosmo, 2 or more view [email or web address] ?Encry pted=s Vaibhav YD8dLq bEUv6g %2BXZw aYqtaq 0bqfl% 2Fg9IQ a4ajBk vP9nXo QUaueC m3YtLR FvZlgJ JJ8mAn HZtai3 [id number] AC0Kqa HiGWKe vKiQtr MwF INTERFACE [facility] Office [address], [place], [address], 03/06/2024 15:51:17 Result Notes None recorded. Problems Name Problem SNOMED Code Status Onset Date Resolution Date Notes Provider Name and Address Organization Details Recorded Time No complaints [id number] Active Status : 'A'; Not Available [facility] 09:16[facility]14 Problem Notes None recorded. Procedures Surgical History Date Name Laterality Status Provider Name and Address Organization Details Recorded Time Sports Shoulder completed Nola Bolton MD [address], [place], [address], [facility] 03/06/2024 16:26:57 Imaging Results Imaging Date Name Status LastModified by Organiz ation Details LastModified Time 03/06/2024 XR, shoulder, 2 or more view completed INTERFACE [facility] [address], [place], [address], 03/06/2024 15:51:15 03/06/2024 XR, shoulder, 2 or more view completed INTERFACE [facility] [address], [place], [address], 03/06/2024 15:51:17 Procedure Notes None recorded. Medical [...] Updated DateTime 03/06/2024 175.26 cm 24.4 kg/m2 37900.74 g ORIANA BRADEN [facility] 03/06/2024 15:40:01 Social History Question Answer Notes LastModified by Organizat ion Details LastModified Time Tobacco Smoking Status Former Smoker ORIANA keys [facility] 03/06/2024 15:39:47 How Many Times Per Week Do You Consume Alcohol? Less Than 1 Time Per Week Information not available 03/06/2024 Do You Or Have You Ever Used E-cigarettes Or Vape? Never Used Electronic Cigarettes Information not available 03/06/2024 When Did You Quit Smoking? 16+yearssincel donnacimalinaette Information not available 03/06/2024 What Is Your [...] N Vascular Disease N Heart Trouble N Gastrointestinal Disease N Heart Attack ([place]) N Cholesterol N Diabetes N Autoimmune disease [...] Diagnosis/Indication Diagnosis SNOMED-CT Code Diagnosis ICD10 Code [id number] MD Megha Sargent 2nd floor [address] [place] [address] 03/06/2024 15:13:39 04/03/2024 12:35:45 Chronic pain of left upper limb [id number] M25.512 G89.29 Health Concerns Section Related Observation [...] repair, 2+2 double row supraspinatus/infrasp inatus repair, ANGELICAWIIsak, 12/03/2022. Right shoulder continues to do well. [...] the Left shoulder ordered and obtained at [facility] today were reviewed during the visit. These demonstrate good preservation of glenohumeral and AC joint spaces. No proximal migration humeral head. Humeral head centered on axillary view. No dystrophic calcium deposition. Type II acromion. CT scan of the left shoulder performed at [facility] 02/25/2024 independently reviewed by me on the [facility] imaging system during the visit today. These demonstrate good preservation of glenohumeral and AC joint spaces. Some calcification of the posterior inferior labrum. Small calcification within the posterior cuff insertion. No proximal migration humeral head. No evidence for full-thickness cuff tear. Mild AC arthrosis. Type II acromion. 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 History and exam most consistent with impingement; Lower suspicion for any significant rotator cuff tear. Symptoms fairly mild at this point, really only manifesting at nighttime with sleeping. Plan: Will go forward with a cortisone injection today. For occasional aches and pains, the patient can take xoge-yeo-ahlbnvm medication such as Tylenol or anti-inflammatories as needed; risks and benefits of medication discussed. Should call with more persistent pain. We will leave follow up open ended at this point. However should symptoms worsen or fail to improve to the patient's satisfaction, he is encouraged to give the office a call to be seen back for further evaluation and management. The [employer] speech recognition school bus operator software was used to create portions of this document. An attempt at proofreading has been made to minimize errors. Please call for corrections. Nola Bolton MD [facility] [address] [address], [place], [address], [facility] 03/06/2024 17:19:26
--- OUTSIDE RECORDS SUMMARY | 2024-04-18 17:36 | XMS_ITS | Continuity of Care Document ---
Author Organization [facility], [facility] 2nd floor Address [address] [place] [address] Care Team Providers Care Stitcher Set Up Operator Automatic Name Role Phone AARON REBOLLEDO Primary Care Provider Assessment No assessment recorded. Plan of Treatment Reminders Order Date Submit Date Provider Last Modified By Organization Details Last Modified Time Details Appointments None recorded. Lab None recorded. Referral None recorded. Procedures None recorded. Surgeries None recorded. Imaging XR, shoulder, 2 or more view - L shoulder 4 view rm 216 2023 024 [email or web address] [facility] Office, [address] [facility] [address], [address], [place], [address], 12:35:45 Medication Orders None recorded. Patient TargetsNo [...] a4ajBk vP9nXo QUaueC m3YtLR FvZlgJ JJ8mAn HZtai3 [id number] AC0Kqa HiGWKe vKiQtr MwF INTERFACE [employer] Office [address], [place], [address], 03/06/2024 15:51:15 03/06/20 24 03/06/2024 XR, shoul cosmo, 2 or more view http:/ [email or web address] ?Encry pted=s Vaibhav YD8dLq bEUv6g %2BXZw aYqtaq 0bqfl% 2Fg9IQ a4ajBk vP9nXo QUaueC m3YtLR FvZlgJ JJ8mAn HZtai3 [id number] AC0Kqa HiGWKe vKiQtr MwF INTERFACE [facility] [address], [place], [address], 03/06/2024 15:51:17 Result Notes None recorded. Problems Name Problem SNOMED Code Status Onset Date Resolution Date Notes Provider Name and Address Organization Details Recorded Time No complaints [id number] Active Status : 'A'; Not Available [facility] 09:16:14 Problem Notes None recorded. Procedures Surgical History Date Name Laterality Status Provider Name and Address Organization Details Recorded Time Sports Shoulder completed Nola Bolton MD [address] [facility] [address], [place], [address], [facility] - [facility] 03/06/2024 16:26:57 Imaging Results [...] Updated DateTime 03/06/2024 175.26 cm 24.4 kg/m2 90201.74 g ORIANA BRADEN [facility] 03/06/2024 15:40:01 Social History Question Answer Notes LastModified by Organizat ion Details LastModified Time Tobacco Smoking Status Former Smoker ORIANA keys [place] - [facility] 03/06/2024 15:39:47 How Many Times Per [...] Disease N Heart Trouble N Heart Attack ([place]) N Gastrointestinal Disease N Cholesterol N Diabetes [...] Diagnosis/Indication Diagnosis SNOMED-CT Code Diagnosis ICD10 Code [id number] MD Megha Sargent 2nd floor [address] [address] 03/06/2024 15:13:39 04/03/2024 12:35:45 Chronic pain of left upper limb [id number] M25.512 G89.29 Health Concerns Section Related Observation [...] the Left shoulder ordered and obtained at [facility] today were reviewed during the visit. These demonstrate good preservation of glenohumeral and AC joint spaces. No proximal migration humeral head. Humeral head centered on axillary view. No dystrophic calcium deposition. Type II acromion. CT scan of the left shoulder performed at [facility] 02/25/2024 independently reviewed by me on the [facility] imaging system during the visit today. These demonstrate good preservation of glenohumeral and AC joint spaces. Some calcification of the posterior inferior labrum. Small calcification within the posterior cuff insertion. No proximal migration humeral head. No evidence for full-thickness cuff tear. Mild AC arthrosis. Type II acromion. 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 History and exam most consistent with impingement; Lower suspicion for any significant rotator cuff tear. Symptoms fairly mild at this point, really only manifesting at nighttime with sleeping. Plan: Will go forward with a cortisone injection today. For occasional aches and pains, the patient can take zhny-hlx-fkcewuw medication such as Tylenol or anti-inflammatories as needed; risks and benefits of medication discussed. Should call with more persistent pain. We will leave follow up open ended at this point. However should symptoms worsen or fail to improve to the patient's satisfaction, he is encouraged to give the office a call to be seen back for further evaluation and management. [employer] speech recognition assistant chief nursing officer software was used to create portions of this document. An attempt at proofreading has been made to minimize errors. Please call for corrections. Nola Bolton MD [facility] [address] [facility], [place], [address], [facility] - [facility] 03/06/2024 17:19:26
[2024-04-18 17:49] LABS: MANUAL DIFF FLAG NO
[2024-04-18 17:51] LABS: Appearance Urine Clear; Color Urine Yellow; Glucose Urine UA Negative (Negative); Leukocyte Esterase Urine Negative (Negative); Nitrite Urine Negative (Negative); PH 5.5 (5.0-9.0); UMIC TRIGGER UACC YES; Urine Blood Small (1+) (Negative); Urine Ketones Negative (Negative); Urine Protein Trace mg/dL (Neg-Trace)
[2024-04-18 17:55] LABS: Basophils Percent Auto 0.4 % (0-2); Eosinophils Absolute Auto 0.1 X10*3/uL (0.0-0.4); Eosinophils Percent Auto 1.8 % (0-4); Hematocrit 40.8 % (42.0-52.0); Hemoglobin 13.4 g/dl (14.0-18.0); Imm Gran Abs Auto 0.02 X10*3/uL (0.00-0.03); Imm Gran Pct Auto 0.3 % (0.0-0.4); Lymphocytes Absolute Auto 1.9 X10*3/uL (1.2-4.9); Lymphocytes Percent Auto 26.9 % (20-40); Mean Corpuscular HGB Conc 32.8 g/dl (31.0-36.0); Mean Corpuscular Hemoglobin 32.5 pg (27.0-33.0); Mean Platelet Volume 11.3 fL (9.4-12.4); Monocytes Absolute Auto 0.6 X10*3/uL (0.1-1.2); Monocytes Percent Auto 8.5 % (2-11); Neutrophils Absolute Auto 4.4 x10*3/uL (2.0-8.3); Neutrophils Percent Auto 62.1 % (45-73); Platelet Count 228 X10*3/uL (160-400); Red Blood Count 4.12 X10*6/uL (4.60-5.80); Red Cell Distribution Width 12.8 % (11.0-16.0); White Blood Count 7.1 X10*3/uL (4.8-10.8)
[2024-04-18 18:08] LABS: Alanine Aminotransferase 20 U/L (0-40); Albumin Level 4.2 g/dL (3.5-5.0); Alkaline Phosphatase 99 U/L (39-117); Anion Gap 9 (12-20); Aspartate Amino Transferase 23 U/L (5-37); Bilirubin Direct 0.2 mg/dL (0.0-0.5); Bilirubin Total 0.5 mg/dL (0.0-1.0); Blood Urea Nitrogen 24 mg/dL (9-16); Calcium 9.4 mg/dL (8.4-10.2); Carbon Dioxide 29 mmol/L (22-29); Chloride 106 mmol/L (96-108); Creatinine Clr Calc Pharmacy 60.1; Estimated Glomerular Filt Rate > 60; Glucose Random 101 mg/dL (60-115); Lipase 24 U/L (8-78); Potassium 4.2 mmol/L (3.3-5.1); Sodium 140 mmol/L (135-145); Total Protein 7.8 g/dL (6.5-8.0)
[2024-04-18 18:12] LABS: Bacteria Urine None Seen (None Seen); Hyaline Casts Urine 0-2 /LPF (0-2); RBC Urine 0-2 /HPF (0-2); Squamous Epithelial Cell Urine 0-2 /HPF (0-2); WBC Urine 0-5 /HPF (0-5)
[2024-04-18 18:45] LABS: Influenza A PCR NEGATIVE (Negative); Influenza B PCR NEGATIVE (Negative); Resp Syncy Virus RNA Qual PCR NEGATIVE (Negative); SARS COV2 PCR INHOUSE NEGATIVE (Negative)
[2024-04-18 22:11] VITALS: BP 166/104; PULSE 78; RESP 18; TEMP 36.6; O2SAT 97
[2024-04-18 23:06] VITALS: BP 163/89
[2024-04-18] MEDS: amLODIPine Besylate 5 MG TABLET PO (23:06)
[2024-04-19] VITALS: BP 159/86; PULSE 74; RESP 18; TEMP 36.6; O2SAT 95
[2024-04-19 01:53] VITALS: BP 159/86; PULSE 74; RESP 18; TEMP 36.6; O2SAT 95
== END 2024-04-19 01:54 | disposition home or self-care (01) ==
PROVIDERS: Emergency Provider Internal Medicine; PCP Internal Medicine
DX: N20.0 Calculus of kidney (principal); R10.31 Right lower quadrant pain; R10.2 Pelvic and perineal pain; Z79.899 Other long term (current) drug therapy; Z03.818 Encounter for observation for suspected exposure to other biological agents ruled out
CPT/HCPCS: 0241U; 74176; 80048; 80076; 81001; 83690; 85025; 99284

== ENCOUNTER 2025-03-26 09:45 | Outpatient (REF) | payer BC, SELFPAY ==
--- NOTE | ~2025-03-26 | US_ITS ---
CLINICAL HISTORY: N20.1 - Calculus of ureter Renal ultrasound Comparison: US/SR - US KIDNEY BILATERAL - 02/04/24 08:57 EDT US/SR - US KIDNEY BILATERAL - 06/17/23 10:44 EST Findings: The kidneys are normal in echotexture bilaterally. No hydronephrosis. The right kidney is normal in size, measuring 10.9 cm in length. Lower pole cyst measuring 1.7 x 1.9 x 2.4 cm with thin internal septations, previously measuring 1.6 x 1.3 x 1.8 cm study from 02/04/24 and 1.7 x 1.3 x 1.6 cm on the study from 06/17/23. The left kidney is normal in size, measuring 11.8 cm in length. Nephrolithiasis measures 3 mm. Impression: No acute findings. This document has been electronically signed by: Candace Rubio MD on 03/26/2025 21:38:50
== END 2025-03-26 09:46 | disposition home or self-care (01) ==
LOC: HO.HMGCX 09:45
PROVIDERS: PCP Internal Medicine; Visit Provider Urology
DX: N20.1 Calculus of ureter (principal)
CPT/HCPCS: 76775

== ENCOUNTER → 2025-03-26 09:47 | Outpatient (BNV) | payer BC, SELFPAY | PROVIDERS: PCP Internal Medicine; Visit Provider Radiology Diagnostic Radiology | DX: N20.1 Calculus of ureter (principal) | CPT/HCPCS: 76775 ==

== ENCOUNTER 2025-04-06 11:12 | Outpatient (AMB) | payer BC, SELFPAY ==
--- NOTE | 2025-04-06 11:16 | MHC.OFFVIS ---
Intake Visit Reasons: 1Y Ultrasound(set) Intake Note: Reason for Visit: 1Y Ultrasound Results Urology Meds: Tamsulosin Blood Thinners: None Labs: None Imaging: Renal Ultrasound 03/26/2025 Last PVR: None Legal Service Specialist Required: No Accompanied by: Self / Same As Patient Allergies No Known Allergies Allergy (Verified 04/06/25 11:20) HPI Comments Details: Alok is a pleasant male. He is a patient of Dr. Lizarraga. He is seen for the following urologic conditions - nephrolithiasis Twelve month follow-up Possible small stone left side Minimal symptoms Nephrolithiasis Hospital presentation April 2023 Underwent stent placement followed by [facility] 7 mm proximal left ureteric stone Imaging - 04/25 renal ultrasound no stones - 04/26 renal ultrasound possible 3 mm left stone PFSH Medical History Renal calculi Glaucoma Surgical History Hx of cystoscopy Hx of rotator cuff surgery History of back surgery Hx of bilateral cataract extraction Social History Household Members: Spouse Housing: House Do you presently have visiting nurse or other home services: No Alcohol intake: former Patient Tobacco Use Status: Former Tobacco user service: No Review of Systems Const Denies chills and Denies fever(s) Card Reports no additional complaints and Denies syncope Resp Denies cough GI Denies abdominal pain and Denies heartburn Reports as per HPI and Denies change in libido Neuro Denies syncope Psych Denies change in libido Endo Denies change in libido Physical Exam Const General: cooperative, healthy appearing, comfortable and no acute distress Orientation/consciousness: patient oriented x3 HEENT Face and sinus: Yes normal facial exam Mouth: moist mucous membranes Neck Neck: Yes normal visual inspection, Yes full ROM and Yes trachea midline Chest Chest palpation & inspection: normal inspection of the chest Resp Effort & Inspection: normal respiratory effort, able to speak in complete sentences and no respiratory distress GI Inspection: Yes normal to inspection Back/Spine/Pelvis Cervical Spine: normal cervical lordosis Thoracic/Lumbar Spine: thoracic and lumbar spine normal to inspection Skin General skin exam: no rashes or lesions noted Neuro General: patient oriented x3, gait normal, tone normal and moves all extremities Extrem General: Yes normal to inspection and Yes capillary refill normal Assessment & Plan Assessment & Plan (1) Ureteric calculus: Code(s): N20.1 - Calculus of ureter Category: Medical Plan Twelve month follow-up ultrasound Orders: Orders US renal BI 12 Months N20.1 - Calculus of ureter Patient Instructions: This note is constructed using voice recognition software. While every effort has been made to ensure accuracy direct sales consultant errors may have been included. Imaging studies, laboratory and physical exam results were discussed and reviewed in detail. No major barriers to patient understanding were identified. An opportunity to ask questions regarding the treatment plan was provided. All questions were answered. The patient expressed understanding and agreement with the above treatment plan. The patient is aware they should contact our office by phone for worsening of their current condition or the appearance of new urologic symptoms. Compliance is encouraged with any medications and followup testing that is ordered. It is a privilege to participate in the urologic care of your patient. If you have any questions or concerns regarding treatment for the above conditions, or other urologic issues, please do not hesitate to contact me. The office telephone contact is [phone]. Sincerely, Dr Petros Valladares MD, [facility] - Urology Compassionate Specialist Care for the Genitourinary System Coding Level of Care Code Est Pt Level 4 (64475) Diagnoses Ureteric calculus N20.1
== END 2025-04-06 11:31 | disposition home or self-care (01) ==
LOC: HO.HUSH 11:13
PROVIDERS: PCP Internal Medicine; Visit Provider Urology
DX: N20.1 Calculus of ureter (principal)
CPT/HCPCS: 99214